=== PATIENT | female | born 1990 | race Caucasian/White ===

== ENCOUNTER 2016-08-25 21:57 | Emergency (ER) | payer OTHER ==
[~2016-08-25] VITALS: Ht 162.6 cm; Wt 81.8 kg
[~2016-08-25 21:57] MED LIST: CIPR-198 PO; CIPR-231 PO; ETON68IM3 SQ; GABA600T2 PO; HYDR-3090 PO; HYDR-4003 PO; IBUP-1827 PO; ONDA4TAB9 PO; OXYC1TAB24 PO; TAMS0.4C98 PO; VENL37.53 PO
[2016-08-25 22:31] VITALS: BP 114/83; PULSE 94; RESP 18; O2SAT 98
--- NOTE | 2016-08-25 22:46 | ED.REPORT ---
HPI-Chest Pain Under 40 Date of Service Aug 25, 2016 ED Provider: Terrance Ngo MD Patient is a 26 year old female with a history of kidney stones who presents to the ED with chest pain that began this afternoon. Patient reports a tightness when sitting still, with a sharp pain when she breaths out. Patient reports that the pain radiates into her left arm, with associated weakness and fatigue. She also reports nausea and vomiting, vomiting on arrival to the ED. The patient is on the Implanon for control and her LNMP was 2 years ago. Patient denies a cough, fever, or chills. Patient has previously had a cholecystectomy and a J-stent placed due to kidney stones, but denies any other surgeries. Patient denies knowledge of a familial hypercoagulable state and heart disease in her close relatives. Nursing Notes Stated Complaint: CHEST PAIN Chief Complaint: Chest Pain-Non Cardiac Nature Nursing Notes Reviewed: Yes Allergies: Coded Allergies: Penicillins (Verified Allergy, Unknown, hives, 07/01/16) amoxicillin (Verified Allergy, Unknown, rash, 07/01/16) Scheduled Ciprofloxacin (Cipro) 500 Mg Tablet 500 MG PO BID Ciprofloxacin (Ciprofloxacin) 500 Mg Tablet 500 MG PO BID Etonogestrel (Nexplanon) 68 Mg Implant 68 MG SQ DAILY Gabapentin (Gabapentin) 600 Mg Tablet 600 MG PO TID Tamsulosin (Flomax) 0.4 Mg Capsule 0.4 MG PO DAILY Venlafaxine ER (Effexor XR) 37.5 Mg Capsule 37.5 MG PO DAILY Scheduled PRN Hydrocodone-Acetaminophen 5-300 mg (Hydrocodone-Acetaminophen 5-300 mg) 1 Each Tablet 1 TABLET PO Q4H PRN PRN For Pain Hydrocodone-Acetaminophen 5-325 mg (Hydrocodone-Acetaminophen 5-325 mg) 1 Each Tablet 1-2 TABLET PO Q4H PRN PRN For Pain Hydrocodone-Acetaminophen 5-325 mg (Hydrocodone-Acetaminophen 5-325 mg) 1 Each Tablet 1 TABLET PO Q4H PRN PRN For Pain Ibuprofen (Ibuprofen) 600 Mg Tablet 600 MG PO QID PRN PRN For Pain Ondansetron ODT (Zofran ODT) 4 Mg Tablet 4 MG PO Q4H PRN PRN For Nausea oxyCODONE-Acetaminophen 5-325 mg (oxyCODONE-Acetaminophen 5-325 mg) 1 Each Tablet 1-2 TAB PO Q6H PRN PRN For Pain General Time Seen by MD: 22:44 Chief Complaint Chest pain Hx Obtained From: Patient Arrived By: Walk-in Sudden in Onset?: No Location: : Chest left Quality: Painful, Stabbing Radiation: : Arm left Severity: Current: Moderate Severity: Maximum: Moderate Recent Healthcare: No recent doctor visit, No recent hospitalization Similar Sx Previous: No Past Medical History Past Medical History Notes: Urologist: Dr. 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 Alcohol Use: Denies alcohol use Drug Use: Denies drug use Other Social History: Good social support, Local resident Ambulatory Status Independent Review of Systems Constitutional: Denies: Chills, Fever Respiratory: Denies: Non-productive cough, Shortness of breath Cardiovascular: Reports: Chest pain GI: Reports: Nausea, Vomiting, Denies: Abdominal pain Complete sys rev & neg: except as marked. Physical Exam Initial Vital Signs Vital Signs (First) Date Time Temp Pulse Resp B/P Pulse Ox O2 Delivery O2 Flow Rate FiO2 08/25/16 22:31 36.1 94 18 114/83 98 Room Air Initial VS: Reviewed Head / Eyes: Atraumatic, Normocephalic, PERRL ENT: Conjunctiva normal, No scleral icterus Neck: Supple, Full range of motion Abdomen / GI: Soft, Non-tender, No guarding, No rebound Extremities: Vascular intact, Neuro intact Skin: Warm, Dry, No cyanosis Neurologic: Alert, Oriented, Nonfocal Psychiatric: Mood/affect normal, Behavior normal, Normal thought content General/Constitutional: Awake, Alert, No acute distress Respiratory / Chest: Breath sounds NL, Breath sounds = bilat, No respiratory distress, No rales, No rhonchi, No wheezing Cardiovascular: Heart rate NL, Regular rhythm, Heart sounds NL, No gallop, No murmurs, No rubs Interpretation & Diagnostics Lab Results Interpretation Result Diagram: 08/25/16 2300 08/25/16 2300 Test 08/25/16 23:00 White Blood Count 9.2th/mm3 (3.8-10.1) Red Blood Count 4.64mil/mm3 (3.90-5.20) Hemoglobin 14.3g/dL (12.0-15.6) Hematocrit 41.1% (35.0-46.0) Mean Corpuscular Volume 88.6fL (81-100) Mean Corpuscular Hemoglobin 30.8pg (27.0-35.0) Mean Corpuscular Hemoglobin Concent 34.8% (32.0-37.0) Red Cell Distribution Width 12.3% (12.3-15.4) Platelet Count 312bil/L (150-400) Neutrophils (%) (Auto) 49.5% (40-74) Lymphocytes (%) (Auto) 38.6% (14-46) Monocytes (%) (Auto) 8.4% (4-12) Eosinophils (%) (Auto) 2.6% (0-5) Basophils (%) (Auto) 0.7% (0-3) D-Dimer < 0.5mg/L (<0.50) Sodium Level 141mEq/L (134-144) Potassium Level 4.3mEq/L (3.5-5.2) Chloride Level 102mEq/L (97-108) Carbon Dioxide Level 25mmol/L (18-29) Blood Urea Nitrogen 6mg/dL (6-20) Creatinine 0.63mg/dL (0.57-1.00) Estimat Glomerular Filtration Rate 161mL/min (>59) Glucose Level 121mg/dL (60-99) Calcium Level 9.4mg/dL (8.5-10.1) Total Bilirubin 0.2mg/dL (0.0-1.2) Aspartate Amino Transf (AST/SGOT) 39U/L (0-50) Alanine Aminotransferase (ALT/SGPT) 39U/L (0-32) Alkaline Phosphatase 125U/L (25-150) Troponin T 0.010ug/L (0.0-0.011) Total Protein 7.8g/dL (6.4-8.4) Albumin 4.4g/dL (3.4-5.0) ECG Interpretation ECG Interpretation: Normal Sinus Rhythm, Rate 79 Time: 23:30 Interpreted by: ED physician Normal ECG Interpretation: No acute ischemic changes X-Ray Chest Interpretation Chest Xray Interpretation: Impression: No acute disease. View: AP & lat Interpretation / Wet Read by: Wet read ED physician Re-Eval/Medical Decision Source of Hx: Old records Re-Evaluation/Progress #1: Time of Eval: 00:00 Re-Evaluation/Progress Note: Rechecked the patient. Her nausea is now improved. Patient reports ongoing chest pain and requests her bed to moved up so that she can sit. Will recheck after additional labs. Re-Evaluation/Progress #2: Time of Eval: 00:25 Re-Evaluation/Progress Note: Work up was negative. Patient understands and agrees with the plan to be discharged home. Discharge instructions and follow-up discussed. All questions were addressed. Return to the ED warnings given. Counseled Regarding: Diagnosis, Lab results, Need for follow-up, When/why to return to ED Discharge & Departure Primary Impression: Non-cardiac chest pain Disposition: Home Discharge Condition All VS Reviewed: Yes Condition: Stable Patient Instructions: Costochondritis (ED) Additional Instructions: ED evaluation included interview exam labs ECG and chest x-ray. No serious cause for chest pain is found. Use ibuprofen 600mg 3 times a day, take with food. Do this for 2-3 days to decrease inflammation, then may use 3-4 times a day as needed. Ondansetrn as needed for nausea. return to ED for fevers, uncontrolled vomiting, shortness of breath. follow up with primary care next week. Referrals: OTHER,PHYSICIAN (PCP) (Family) Scribe Attestation Portions of this note were transcribed by Gayla Moreland. I, Dr. Ngo personally performed the history, physical exam and medical decision-making; I reviewed and confirmed the accuracy of the information in the transcribed note. Signed by: Jaylen Matt, 08/26/2016 0016 copies to: MISHA,PHYSICIAN Terrance Ngo MD Aug 25, 2016 22:46 Gayla Moreland Aug 25, 2016 22:54
[2016-08-25] MEDS ORDERED: 0.9% Sodium Chloride 1,000 ML IV ONE (22:55)
[2016-08-25] MEDS ORDERED: Ondansetron 2 mg/mL 2 mL Inj IVPUSH ONE (22:55)
[2016-08-25 23:36] LABS: Mean Corpuscular Hemoglobin 30.8 pg (27.0-35.0); Mean Corpuscular Volume 88.6 fL (81-100)
[2016-08-25 23:37] LABS: BASOPHILS % (AUTO) 0.7 % (0-3); EOSINOPHILS % (AUTO) 2.6 % (0-5); MONOCYTES % (AUTO) 8.4 % (4-12); NEUTROPHILS % (AUTO) 49.5 % (40-74); Platelet Count 312 bil/L (150-400)
[2016-08-26 00:03] LABS: TROPONIN T 0.01 ug/L (0.0-0.011)
[2016-08-26] MEDS ORDERED: HYDROcodone-APAP 5-325 mg Tablet PO ONE (00:05)
[2016-08-26] MEDS ORDERED: _Ondansetron ODT 4 mg Tablet PO PRN (00:15)
[2016-08-26 00:57] VITALS: BP 109/71; PULSE 70; PULSE 71; RESP 16; RESP 18; O2SAT 97
--- NOTE | 2016-08-26 08:56 | DRSVH ---
PROCEDURE: X-RAY CHEST, TWO VIEWS ([id number]) INDICATIONS: chest pain TECHNIQUE: 2 views of the chest were acquired. COMPARISON: None. FINDINGS: Surgical changes and devices: None. Lungs and pleura: No pleural effusions or pneumothorax. Lungs are clear. Mediastinum: Mediastinal contours are normal. Heart size is normal. Bones and chest wall: No suspicious bony abnormalities. Soft tissues appear unremarkable. IMPRESSION: Normal for age. Source of pain not seen. Dictated by: Ishaan Martines M.D. on 08/26/2016 at 8:54 Approved by: Ishaan Martines M.D. on 08/26/2016 at 8:54
== END 2016-08-26 00:58 | disposition home or self-care (01) ==
LOC: SED 21:57
DX: R07.89 Other chest pain (principal); Z90.49 Acquired absence of other specified parts of digestive tract; F17.200 Nicotine dependence, unspecified, uncomplicated
CPT/HCPCS: 36415; 71020; 80053; 84484; 85025; 85379; 93005; 96361; 96374; 96375; 99285; J2405; J7030

== ENCOUNTER 2016-09-10 17:58 | Emergency (ER) | payer OTHER ==
[~2016-09-10] VITALS: Ht 162.6 cm; Wt 81.8 kg
[2016-09-10 18:03] VITALS: BP 124/93; PULSE 100; RESP 20; O2SAT 98
--- NOTE | 2016-09-10 18:12 | ED.REPORT ---
HPI-Abd Pain F Under 40 Date of Service Sep 10, 2016 ED Provider: Romie Chen DO A 26 year old female with a history of pyelonephritis, right-sided ureteropelvic junction obstruction, and stent removal presents to the ED complaining of right sided abdominal pain radiating to her back. This is accompanied by diarrhea, fever, nausea, dysuria, and chills. The pt has been experiencing frequent watery diarrhea for 1.5 days, and the chills began several hours ago. The pain is similar to pain that has been occurring intermittently since before her operation. The pt has never before experienced diarrhea with her pain. She is not on her menstrual period at this time. Nursing Notes Stated Complaint: ABDOMINAL PAIN, CHILLS Chief Complaint: Female Abdominal Pain Nursing Notes Reviewed: Yes Allergies: Coded Allergies: Penicillins (Verified Allergy, Unknown, hives, 07/01/16) amoxicillin (Verified Allergy, Unknown, rash, 07/01/16) Scheduled Ciprofloxacin (Cipro) 500 Mg Tablet 500 MG PO BID Ciprofloxacin (Ciprofloxacin) 500 Mg Tablet 500 MG PO BID Etonogestrel (Nexplanon) 68 Mg Implant 68 MG SQ DAILY Gabapentin (Gabapentin) 600 Mg Tablet 600 MG PO TID Tamsulosin (Flomax) 0.4 Mg Capsule 0.4 MG PO DAILY Venlafaxine ER (Effexor XR) 37.5 Mg Capsule 37.5 MG PO DAILY Scheduled PRN Hydrocodone-Acetaminophen 5-300 mg (Hydrocodone-Acetaminophen 5-300 mg) 1 Each Tablet 1 TABLET PO Q4H PRN PRN For Pain Hydrocodone-Acetaminophen 5-325 mg (Hydrocodone-Acetaminophen 5-325 mg) 1 Each Tablet 1-2 TABLET PO Q4H PRN PRN For Pain Hydrocodone-Acetaminophen 5-325 mg (Hydrocodone-Acetaminophen 5-325 mg) 1 Each Tablet 1 TABLET PO Q4H PRN PRN For Pain Ibuprofen (Ibuprofen) 600 Mg Tablet 600 MG PO QID PRN PRN For Pain Ondansetron ODT (Zofran ODT) 4 Mg Tablet 4 MG PO Q4H PRN PRN For Nausea oxyCODONE-Acetaminophen 5-325 mg (oxyCODONE-Acetaminophen 5-325 mg) 1 Each Tablet 1-2 TAB PO Q6H PRN PRN For Pain General Time Seen by MD: 18:11 Chief Complaint Abdominal pain Hx Obtained From: Patient Arrived By: Walk-in Sudden in Onset?: No Onset Occurred: More than a week ago... Symptom Duration: Intermittent Recent Healthcare: Recent doctor visit, Recent hospitalization Similar Sx Previous: Yes Past Medical History Past Medical History Notes: Urologist: Dr. 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 Alcohol Use: Denies alcohol use Drug Use: Denies drug use Other Social History: Good social support, Local resident Ambulatory Status Independent Review of Systems Constitutional: Reports: Chills, Fever Respiratory: Denies: Non-productive cough, Shortness of breath Cardiovascular: Denies: Chest pain GI: Reports: Abdominal pain, Diarrhea, Nausea Female: Reports: Dysuria Musculoskeletal: Reports: Back pain Complete sys rev & neg: except as marked. Physical Exam Initial Vital Signs Vital Signs (First) Date Time Temp Pulse Resp B/P Pulse Ox O2 Delivery O2 Flow Rate FiO2 09/10/16 18:03 36.3 100 20 124/93 98 09/10/16 21:02 Room Air Initial VS: Reviewed General/Constitutional: Awake, Alert Respiratory / Chest: Atraumatic, Breath sounds NL, Breath sounds = bilat, No respiratory distress Cardiovascular: Heart rate NL, Regular rhythm, Heart sounds NL Abdomen: Atraumatic, Soft abdomen diffusely tender without rebound or guarding Back: Atraumatic, Full range of motion right CVAT right paraspinal tenderness Head / Eyes: Atraumatic, Normocephalic, PERRL, EOMI ENT: Atraumatic, Airway patent, Mucous membranes moist Skin: Atraumatic, Color NL, No rash, Warm, Dry Neurologic: Oriented X3, Speech NL, No motor deficits, No sensory deficits Neck: Atraumatic, Supple, Full range of motion Upper Extremity / MS: Atraumatic, Full range of motion Lower Extremity / Pelvis / MS: Atraumatic, Full range of motion Psychiatric: Affect NL, Mood NL Interpretation & Diagnostics Interpretation & Diagnostics: CT KUB: IMPRESSION: 1. No evidence of urinary tract calcification, nor obstruction. 2. Normal appendix. 3. Right sacroiliitis. Dictated by: Sharon Chung M.D. on 09/10/2016 at 21:37 Approved by: Sharon Chung M.D. on 09/10/2016 at 21:40 Lab Results Interpretation Result Diagram: 09/10/16 1904 09/10/16 1904 Test 09/10/16 18:44 09/10/16 19:04 Urine Color Bloody (YELLOW) Urine Appearance Hazy (CLEAR,HAZY) Urine pH 6.0 (5.0-8.0) Urine Specific [place] <1.005 (1.003-1.035) Urine Protein Negativemg/dL (NEG,TRACE) Urine Glucose (UA) Negativemg/dL (NEGATIVE) Urine Ketones Negativemg/dL (NEGATIVE) Urine Occult Blood Large (NEGATIVE) Urine Nitrite Negative (NEGATIVE) Urine Bilirubin Negative (NEGATIVE) Urine Urobilinogen Normalmg/dL (NORMAL) Urine Leukocyte Esterase Negative (NEGATIVE) Urine RBC >50/hpf (0-2) Urine WBC 0-5/hpf (0-5) Urine Epithelial Cells Many/hpf (NONE-MOD) Urine Crystals None seen (NONE SEEN) Urine Bacteria Many/hpf (NONE-FEW) Urine Hyaline Casts None/lpf (NONE) Urine Granular Casts None seen (NONE SEEN) Urine Waxy Casts None seen (NONE SEEN) Urine Red Blood Cell Casts None seen (NONE SEEN) Urine White Blood Cell Casts None seen (NONE SEEN) Urine Mucus None seen (None Seen) Urine Trichomonas None seen (NONE SEEN) Urine Yeast None (NONE SEEN) Urinalysis Comment None Urine Culture Reflexed Indicated White Blood Count 7.2th/mm3 (3.8-10.1) Red Blood Count 4.31mil/mm3 (3.90-5.20) Hemoglobin 13.0g/dL (12.0-15.6) Hematocrit 38.4% (35.0-46.0) Mean Corpuscular Volume 89.1fL (81-100) Mean Corpuscular Hemoglobin 30.2pg (27.0-35.0) Mean Corpuscular Hemoglobin Concent 33.9% (32.0-37.0) Red Cell Distribution Width 12.2% (12.3-15.4) Platelet Count 324bil/L (150-400) Neutrophils (%) (Auto) 64.3% (40-74) Lymphocytes (%) (Auto) 27.6% (14-46) Monocytes (%) (Auto) 6.0% (4-12) Eosinophils (%) (Auto) 1.4% (0-5) Basophils (%) (Auto) 0.6% (0-3) Sodium Level 141mEq/L (134-144) Potassium Level 3.7mEq/L (3.5-5.2) Chloride Level 104mEq/L (97-108) Carbon Dioxide Level 24mmol/L (18-29) Blood Urea Nitrogen 10mg/dL (6-20) Creatinine 0.56mg/dL (0.57-1.00) Estimat Glomerular Filtration Rate 185mL/min (>59) Glucose Level 81mg/dL (60-99) Lactic Acid Level 1.0mmol/L (0.4-2.0) Calcium Level 9.3mg/dL (8.5-10.1) Magnesium Level 2.1mg/dL (1.6-2.6) Total Bilirubin 0.3mg/dL (0.0-1.2) Aspartate Amino Transf (AST/SGOT) 38U/L (0-50) Alanine Aminotransferase (ALT/SGPT) 55U/L (0-32) Alkaline Phosphatase 176U/L (25-150) Total Protein 7.5g/dL (6.4-8.4) Albumin 4.4g/dL (3.4-5.0) Lipase 40U/L (13-60) X-Ray Abdominal Interpretation IMPRESSION: No acute process. No bowel obstruction. Dictated by: Sharon Chung M.D. on 09/10/2016 at 19:00 Approved by: Sharon Chung M.D. on 09/10/2016 at 19:01 Interpretation / Wet Read by: Interpret - Radiologist Re-Eval/Medical Decision Med Decision/Clinical Course 26-year-old female with a history of anxiety and low back pain presents with nausea, vomiting, and diarrhea for the past day. She has had 11 episodes of watery bowel movements. His fevers or chills. Denies hematemesis/melena. She is not on her period, this finished 2 days ago. She was found to have significant hematuria and given her right-sided CVA tenderness/flank pain abdominal CT was performed which returned normal except for his right-sided sacroiliitis. History of some renal complications on the right side that have required a stent which was recently removed back in June. I do not see any evidence of complications today but we can have her follow-up with urology as an outpatient at her request. Her renal function is normal. I have nothing to explain hematuria, but her exam and labs are reassuring. She will take ibuprofen for her sacroiliitis and I gave her a small supply of pain medications for breakthrough pain. Source of Hx: Old records Re-Evaluation/Progress #1: Time of Eval: 20:46 Re-Evaluation/Progress Note: Pt rechecked, who is still in pain. She is informed of her lab results and need for CT scan. Re-Evaluation/Progress #2: Time of Eval: 22:08 Patient Status: Condition improved Re-Evaluation/Progress Note: Pt rechecked, who is resting comfortably. She is informed of her lab and radiology results, as well as her diagnosis and the plan for discharge. The pt understands and agrees with the plan. All questions are addressed at this time. Counseled Regarding: Diagnosis, Lab results, Need for follow-up, When/why to return to ED Discharge & Departure Primary Impression: Gastroenteritis Additional Impressions: Sacroiliitis Hematuria Disposition: Home Discharge Condition All VS Reviewed: Yes Condition: Stable Additional Instructions: Thank you for entrusting us with your care today. Follow up with Dr. Dietz, urology, this week for further evaluation. Call on Tuesday to arrange this appointment. You should also follow up with your primary care provider. Return to the emergency department if you develop any new or concerning symptoms. Referrals: OTHER,PHYSICIAN (PCP) Abran Dietz MD Attestation Portions of this note were transcribed by Chantel Ramirez I, Dr. Chen personally performed the history, physical exam and medical decision-making; I reviewed and confirmed the accuracy of the information in the transcribed note. Signed by: Jaylen Bailey, 09/10/16 and 18:29. copies to: Abran Dietz MD, Gary R DO Sep 10, 2016 18:12 CHANTEL RAMIREZ Sep 10, 2016 18:29
[2016-09-10] MEDS ORDERED: 0.9% Sodium Chloride 1,000 ML IV ONE (18:28)
[2016-09-10] MEDS ORDERED: Ondansetron 2 mg/mL 2 mL Inj IVPUSH PRN (18:30)
[2016-09-10 18:56] LABS: APPEARANCE,URINE HAZY (CLEAR,HAZY); COLOR,URINE BLOODY (YELLOW); OCCULT BLOOD,URINE LARGE (NEGATIVE); UROBILINOGEN,URINE NORMAL (NORMAL)
--- NOTE | 2016-09-10 19:03 | DRSVH ---
PROCEDURE: X-RAY ACUTE ABDOMINAL SERIES ([id number]) INDICATIONS: diffuse abdominal pain, diarrhea TECHNIQUE: One view chest and two views of the abdomen were acquired. COMPARISON: [facility], CR, XR ABD ACUTE SERIES 3VW, 04/29/2016, 14:43. [facility], CR, XR CHEST 2VW, 08/25/2016, 23:35. FINDINGS: Surgical changes and devices: None. Chest: Lungs are clear. Heart size is normal. No pleural effusions. No pneumoperitoneum. Abdomen: Bowel gas pattern is normal. No suspicious calcifications. Visualized solid organ contour s appear normal. Bones: No suspicious bony lesions. IMPRESSION: No acute process. No bowel obstruction. Dictated by: Sharon Chung M.D. on 09/10/2016 at 19:00 Approved by: Sharon Chung M.D. on 09/10/2016 at 19:01
[2016-09-10 19:20] LABS: BASOPHILS % (AUTO) 0.6 % (0-3); EOSINOPHILS % (AUTO) 1.4 % (0-5); Mean Corpuscular Hemoglobin 30.2 pg (27.0-35.0); Mean Corpuscular Volume 89.1 fL (81-100); NEUTROPHILS % (AUTO) 64.3 % (40-74); Platelet Count 324 bil/L (150-400)
[2016-09-10 19:43] LABS: Magnesium 2.1 mg/dL (1.6-2.6)
[2016-09-10] MEDS ORDERED: HYDROmorphone 1 mg/mL Inj IVPUSH ONE (20:45)
[2016-09-10 21:02] VITALS: BP 127/62; PULSE 84; RESP 16; O2SAT 97
--- NOTE | 2016-09-10 21:42 | DRSVH ---
PROCEDURE: CT KUB ([id number]) INDICATIONS: R flank pain, hematuria TECHNIQUE: Noncontrast 5 mm thick sections acquired from the diaphragms to the symphysis. 5 mm thick coronal an d sagittal reformats were then performed. For radiation dose reduction, the following was used: aut omated exposure control, adjustment of mA and/or kV according to patient size. COMPARISON: [facility], CT, CT ABD PELVIS W CON, 05/14/2016, 1:46. [facility] l, CT, CT KUB, 06/06/2016, 11:02. FINDINGS: Image quality: Excellent. Lung bases: Lung bases are clear. Heart size is normal. Urinary system: Both kidneys are normal in size. No kidney stones. No hydronephrosis or perinephri c fat stranding. Both ureters appear non-dilated throughout their expected courses. Bladder wall th ickness is normal; no calcified bladder stones. Other solid organs: Liver and spleen are normal in size. Gallbladder is surgically absent. Pancrea s is normal in contours. No adrenal nodules. Peritoneum and bowel: Unenhanced bowel loops demonstrate normal wall thickness and caliber. No free fluid or air. Normal appendix. Nodes and vessels: No retroperitoneal or mesenteric adenopathy by size criteria. Aorta and inferior vena cava are normal in caliber. Abdominal wall: No ventral hernias. Pelvis: No free pelvic fluid. No inguinal hernias or adenopathy. Bones: No suspicious bony lesions. Sclerosis within the right lateral sacrum adjacent to the sacroi liac joint is present. No vertebral body compression fractures. IMPRESSION: 1. No evidence of urinary tract calcification, nor obstruction. 2. Normal appendix. 3. Right sacroiliitis. Dictated by: Sharon Chung M.D. on 09/10/2016 at 21:37 Approved by: Sharon Chung M.D. on 09/10/2016 at 21:40
[2016-09-10] MEDS ORDERED: oxyCODONE-Acetamin 5-325 mg Tablet PO ONE (22:15)
[2016-09-10] MEDS ORDERED: _oxyCODONE/APAP 5-325 mg Tablet PO PRN (22:25)
== END 2016-09-10 23:03 | disposition home or self-care (01) ==
LOC: SED 17:58
DX: K52.9 Noninfective gastroenteritis and colitis, unspecified (principal); M46.1 Sacroiliitis, not elsewhere classified; R31.9 Hematuria, unspecified; F41.9 Anxiety disorder, unspecified; F17.200 Nicotine dependence, unspecified, uncomplicated; Z87.448 Personal history of other diseases of urinary system; Z96.0 Presence of urogenital implants; Z88.0 Allergy status to penicillin
CPT/HCPCS: 36415; 74022; 74176; 80053; 81000; 81025; 83605; 83690; 83735; 85025; 87086; 87088; 96361; 96374; 96375; 99285; J1170; J2405; J7030

== ENCOUNTER 2016-09-20 22:24 | Emergency (ER) | payer OTHER ==
[~2016-09-20] VITALS: Ht 162.6 cm; Wt 79.5 kg
[2016-09-20 22:38] VITALS: BP 131/85; PULSE 32; RESP 18; O2SAT 98
--- NOTE | 2016-09-21 00:15 | ED.REPORT ---
HPI-General Illness Peds Date of Service Sep 21, 2016 ED Provider: Gennaro Blood MD Nursing Notes Stated Complaint: LEFT WRIST LACERATION Chief Complaint: Laceration Nursing Notes Reviewed: Yes Allergies: Coded Allergies: Penicillins (Verified Allergy, Unknown, hives, 09/20/16) amoxicillin (Verified Allergy, Unknown, rash, 09/20/16) Scheduled Ciprofloxacin (Cipro) 500 Mg Tablet 500 MG PO BID Ciprofloxacin (Ciprofloxacin) 500 Mg Tablet 500 MG PO BID Etonogestrel (Nexplanon) 68 Mg Implant 68 MG SQ DAILY Gabapentin (Gabapentin) 600 Mg Tablet 600 MG PO TID Tamsulosin (Flomax) 0.4 Mg Capsule 0.4 MG PO DAILY Venlafaxine ER (Effexor XR) 37.5 Mg Capsule 37.5 MG PO DAILY Scheduled PRN Hydrocodone-Acetaminophen 5-300 mg (Hydrocodone-Acetaminophen 5-300 mg) 1 Each Tablet 1 TABLET PO Q4H PRN PRN For Pain Hydrocodone-Acetaminophen 5-325 mg (Hydrocodone-Acetaminophen 5-325 mg) 1 Each Tablet 1-2 TABLET PO Q4H PRN PRN For Pain Hydrocodone-Acetaminophen 5-325 mg (Hydrocodone-Acetaminophen 5-325 mg) 1 Each Tablet 1 TABLET PO Q4H PRN PRN For Pain Ibuprofen (Ibuprofen) 600 Mg Tablet 600 MG PO QID PRN PRN For Pain Ondansetron ODT (Zofran ODT) 4 Mg Tablet 4 MG PO Q4H PRN PRN For Nausea oxyCODONE-Acetaminophen 5-325 mg (oxyCODONE-Acetaminophen 5-325 mg) 1 Each Tablet 1-2 TAB PO Q6H PRN PRN For Pain General Time Seen by MD: 00:05 Past Medical History Past Medical History Notes: Urologist: Dr. Okeefe Smoking History Current Every Day Smoker, Light Tobacco Smoker Physical Exam Initial Vital Signs Vital Signs (First) Date Time Temp Pulse Resp B/P Pulse Ox O2 Delivery O2 Flow Rate FiO2 09/20/16 22:38 37.0 32 18 131/85 98 Discharge & Departure Referrals: NOPCP (PCP) Gennaro Blood MD Sep 21, 2016 00:15 Gayla Moreland Sep 21, 2016 00:20
[2016-09-21] MEDS ORDERED: Lidocaine-Epi-Tetracaine Solution 3 mL Syringe TOPICAL ONE (00:20)
--- NOTE | 2016-09-21 00:21 | ED.REPORT ---
HPI-Extremity Problem Upper Date of Service Sep 21, 2016 ED Provider: Gennaro Blood MD Patient is a 26 year old female with a history of depression with self-harm who presents to the ED with several lacerations to her left arm that she inflicted this evening. The patient states that she simply cut herself too deep and realized that she needed stitches. She used a razor blade to cut herself. The patient admits that she frequently cutting herself, as a form of pain relief. The patient also cut herself yesterday, but states that prior to that incident it had been 6 months. Patient states that she has chronic flank and abdominal pain and that cutting herself is a way of dealing with her intractable pain. Patient denies being suicidal. Patient denies any other lacerations to her mother other extremities. The patient denies doing anything else to harm herself. Patient is unsure when her last tetanus shot was, but probably during high school. Nursing Notes Stated Complaint: LEFT WRIST LACERATION Chief Complaint: Laceration Nursing Notes Reviewed: Yes Allergies: Coded Allergies: Penicillins (Verified Allergy, Unknown, hives, 09/20/16) amoxicillin (Verified Allergy, Unknown, rash, 09/20/16) Scheduled Ciprofloxacin (Cipro) 500 Mg Tablet 500 MG PO BID Ciprofloxacin (Ciprofloxacin) 500 Mg Tablet 500 MG PO BID Etonogestrel (Nexplanon) 68 Mg Implant 68 MG SQ DAILY Gabapentin (Gabapentin) 600 Mg Tablet 600 MG PO TID Tamsulosin (Flomax) 0.4 Mg Capsule 0.4 MG PO DAILY Venlafaxine ER (Effexor XR) 37.5 Mg Capsule 37.5 MG PO DAILY Scheduled PRN Hydrocodone-Acetaminophen 5-300 mg (Hydrocodone-Acetaminophen 5-300 mg) 1 Each Tablet 1 TABLET PO Q4H PRN PRN For Pain Hydrocodone-Acetaminophen 5-325 mg (Hydrocodone-Acetaminophen 5-325 mg) 1 Each Tablet 1-2 TABLET PO Q4H PRN PRN For Pain Hydrocodone-Acetaminophen 5-325 mg (Hydrocodone-Acetaminophen 5-325 mg) 1 Each Tablet 1 TABLET PO Q4H PRN PRN For Pain Ibuprofen (Ibuprofen) 600 Mg Tablet 600 MG PO QID PRN PRN For Pain Ondansetron ODT (Zofran ODT) 4 Mg Tablet 4 MG PO Q4H PRN PRN For Nausea oxyCODONE-Acetaminophen 5-325 mg (oxyCODONE-Acetaminophen 5-325 mg) 1 Each Tablet 1-2 TAB PO Q6H PRN PRN For Pain General Time Seen by MD: 00:05 Chief Complaint Arm injury left Hx Obtained From: Patient Arrived By: Walk-in Onset Occurred: 1 - 4 hours ago Symptom Duration: Since onset Location: : Arm left Quality: Painful Severity: Current: Mild Severity: Maximum: Mild Recent Healthcare: No recent doctor visit, No recent hospitalization Similar Sx Previous: Yes Past Medical History Past Medical History Notes: Urologist: Dr. Okeefe Past Medical History Pyelonephritis Kidney stones Suspected right-sided ureteropelvic junction obstruction s/p stenting on 05/12/2016 chronic flank pain related to kidney stones and prior stenting Chlamydia depression with self-cutting history of IVDA Past Surgical History right sided double-J stent placement removed 06/2016 Reports: Cholecystectomy Family History Grandmother: heart disease and prior [place] Mother: Colon cancer no family history of blood clots Smoking History Current Every Day Smoker, Light Tobacco Smoker Social History former IVDA, not currently using. Alcohol Use: Denies alcohol use Drug Use: Denies drug use Other Social History: Good social support, Local resident Ambulatory Status Independent Review of Systems Musculoskeletal: Reports: Extremity pain, Denies: Extremity swelling Complete sys rev & neg: except as marked. Hematologic: Reports Bleeding Psychiatric: Reports: Depression, Denies: Suicidal ideation Physical Exam Initial Vital Signs Vital Signs (First) Date Time Temp Pulse Resp B/P Pulse Ox O2 Delivery O2 Flow Rate FiO2 09/20/16 22:38 37.0 32 18 131/85 98 09/21/16 02:07 Room Air Initial VS: Reviewed, Vital signs normal Head / Eyes: Atraumatic, Normocephalic, PERRL ENT: Conjunctiva normal, No scleral icterus Neck: Supple, Full range of motion Lower Extremities: Vascular intact, Neuro intact Skin: Warm, Dry, No cyanosis Neurologic: Alert, Oriented, Nonfocal General/Constitutional: Awake, Alert, No acute distress Respiratory / Chest: Breath sounds NL, Breath sounds = bilat, No respiratory distress, No rales, No rhonchi, No wheezing, No stridor Cardiovascular: Heart rate NL, Regular rhythm, Heart sounds NL, Cap refill not delayed, Peripheral circulation NL Upper Extremity / MS: Neurologic intact, Vascular intact Trauma / Burn / Environmental: Positive: Laceration (4.5cm laceration to the left forearm, longitudinal, full thickness into the subcutaneous tissue, but not involving vital structures.) Multiple transverse superficial lacerations to the volar left wrist. Psychiatric: Affect NL, Mood NL, Not suicidal Abnormal Mood/Affect: Negative: Depressed, Flat affect animated and conversant Procedures Laceration Management Time: :28 Procedure Performed by: ED physician Consent / Setup / Site Prep: Consent from patient, Time-out performed, Hand hygiene observed, Stand sterile technique Location of Wound: left forearm Wound Length: 4 cm (4.5cm) Local Anesthesia: Lidocaine w epi 1% Wound Preparation: Shurclens, Normal saline Debridement: None Foreign Body Explore / Removal: Explored for foreign body Repair Skin: Nylon (5-0) # Sutures - Skin: 8 Closure Layers: 1 Suture Technique: Simple Post-Procedure / Complications: Antibiotic oint applied, Dressing applied, No complications, Condition improved, Tolerated procedure well, Patient stable Re-Eval/Medical Decision Med Decision/Clinical Course 26-year-old female who cut her left forearm intent upon "relieving the pain." She cuts frequently. One cut was much deeper than she intended and required sutures. Her wound was closed without difficulty. She has a history of chronic pain with intermittent opiate treatment in the past. She is not currently on opiates. We discussed the use of Suboxone in her case and she will make an appointment with [facility] to explore use of that medicine chronically. She does not feel at risk at this time of further self injury. Source of Hx: Old records Re-Evaluation/Progress : Time of Eval: : Patient Status: Condition improved Re-Evaluation/Progress Note: Rechecked the patient. Laceration repaired. She is not currently on any chronic pain medications, but states that she was last on narcotics 1 month ago (5mg Vicodin). She states that it didn't completely resolve her pain. She was previously on Suboxone for opiate withdrawal, but states that it made her nauseated. Patient understands and agrees with the plan to be discharged home. Discharge instructions and follow-up discussed. All questions were addressed. Return to the ED warnings given. Counseled Regarding: Diagnosis, Need for follow-up, When/why to return to ED Discharge & Departure Impression: Primary Impression: Laceration of left forearm Encounter type: initial encounter Qualified Code: S51.812A - Laceration without foreign body of left forearm, initial encounter Additional Impression: Deliberate self-cutting Disposition: Home Discharge Condition Condition: Stable Patient Instructions: Laceration (ED), Suture Care (ED) Additional Instructions: Sutures out in 7-10 days. You may return here for that. Agree to stay safe, and not cut. Contact [facility] to schedule an appointment to see me to discuss the use of buprenorphine for your chronic pain issues. Referrals: [facility] Scribe Attestation Portions of this note were transcribed by Gayla Moreland. I, Dr. Blood personally performed the history, physical exam and medical decision-making; I reviewed and confirmed the accuracy of the information in the transcribed note. Signed by: Jaylen Matt, 09/21/2016 0202 Gennaro Blood MD Sep 21, 2016 00:21 Gayla Moreland Sep 21, 2016 00:23
[2016-09-21 02:07] VITALS: BP 128/70; PULSE 72; RESP 16; O2SAT 99
== END 2016-09-21 02:08 | disposition home or self-care (01) ==
LOC: SED 22:24
DX: S51.812A Laceration without foreign body of left forearm, initial encounter (principal); X78.8XXA Intentional self-harm by other sharp object, initial encounter; Y93.89 Activity, other specified; Y92.9 Unspecified place or not applicable; Y99.8 Other external cause status; F17.200 Nicotine dependence, unspecified, uncomplicated; Z88.0 Allergy status to penicillin; Z91.5 Personal history of self-harm; Z88.1 Allergy status to other antibiotic agents

== ENCOUNTER 2016-09-22 23:14 | Emergency (ER) | payer OTHER ==
[~2016-09-22] VITALS: Ht 162.6 cm; Wt 79.5 kg
[2016-09-22 23:23] VITALS: BP 105/67; PULSE 101; RESP 22; O2SAT 98
--- NOTE | 2016-09-22 23:29 | ED.REPORT ---
HPI-Psychiatric Illness Date of Service Sep 22, 2016 ED Provider: Gennaro Blood MD Patient is a 26 year old female with a history of depression with self-harm who was last seen in the ED for self-inflicted laceration two nights ago presents to the ED with several lacerations to her left arm that she inflicted this evening, with one laceration that is substantially bleeding on arrival to the ED. Patient arrives with the arm wrapped and blood on her shirt. She used a razor blade to cut herself. The patient admits that she frequently cuts herself , as a form of pain relief. Patient was seen in the ED 2 days for this complaint , receiving 8 sutures, with the patient claiming that she simply cut too deep. The patient denied being suicidal at that time and agreed to stay safe, ultimately discharged home. Patient admits that she has been cutting herself more frequently recently. Patient states that she has chronic pain and that cutting herself is a way of dealing with her physical pain. The patient denies doing anything else to harm herself tonight and agrees not to harm herself in the ED. The patient has an upcoming appointment to see a provider at [facility], but it is not for another 2 weeks. Patient admits that she needs to see a counselor in the immediate future. Nursing Notes Stated Complaint: SELF INFLICTED L ARM LAC Chief Complaint: Extremity Trauma Nursing Notes Reviewed: Yes Allergies: Coded Allergies: Penicillins (Verified Allergy, Unknown, hives, 09/22/16) amoxicillin (Verified Allergy, Unknown, rash, 09/22/16) Scheduled Ciprofloxacin (Cipro) 500 Mg Tablet 500 MG PO BID Ciprofloxacin (Ciprofloxacin) 500 Mg Tablet 500 MG PO BID Etonogestrel (Nexplanon) 68 Mg Implant 68 MG SQ DAILY Gabapentin (Gabapentin) 600 Mg Tablet 600 MG PO TID Tamsulosin (Flomax) 0.4 Mg Capsule 0.4 MG PO DAILY Venlafaxine ER (Effexor XR) 37.5 Mg Capsule 37.5 MG PO DAILY Scheduled PRN Hydrocodone-Acetaminophen 5-300 mg (Hydrocodone-Acetaminophen 5-300 mg) 1 Each Tablet 1 TABLET PO Q4H PRN PRN For Pain Hydrocodone-Acetaminophen 5-325 mg (Hydrocodone-Acetaminophen 5-325 mg) 1 Each Tablet 1-2 TABLET PO Q4H PRN PRN For Pain Hydrocodone-Acetaminophen 5-325 mg (Hydrocodone-Acetaminophen 5-325 mg) 1 Each Tablet 1 TABLET PO Q4H PRN PRN For Pain Ibuprofen (Ibuprofen) 600 Mg Tablet 600 MG PO QID PRN PRN For Pain Ondansetron ODT (Zofran ODT) 4 Mg Tablet 4 MG PO Q4H PRN PRN For Nausea oxyCODONE-Acetaminophen 5-325 mg (oxyCODONE-Acetaminophen 5-325 mg) 1 Each Tablet 1-2 TAB PO Q6H PRN PRN For Pain General Time Seen by MD: 23:23 Chief Complaint Other (self-inflicted laceration to the left arm) Hx Obtained From: Patient Arrived By: Walk-in Onset Occurred: Just prior to arrival Symptom Duration: Since onset Caused by: Cut self Location: : Arm left Quality: Painful Severity: Current: Mild Severity: Maximum: Mild Recent Healthcare: No recent hospitalization, Recent doctor visit Similar Sx Previous: Yes Risk-Psychiatric Illness Suicide Risk Stratification Suicide Risk Factors - Adult: No: Alcohol use, Substance abuse RF Statements: Risk factors reviewed Past Medical History Past Medical History Notes: Urologist: Dr. Okeefe Past Medical History depression with self-cutting Pyelonephritis Kidney stones Suspected right-sided ureteropelvic junction obstruction s/p stenting on 05/12/2016 chronic flank pain related to kidney stones and prior stenting Chlamydia history of IVDA Past Surgical History right sided double-J stent placement removed 06/2016 Reports: Cholecystectomy Family History Grandmother: heart disease and prior [place] Mother: Colon cancer no family history of blood clots Smoking History Current Every Day Smoker, Light Tobacco Smoker Social History former IVDA, not currently using. Alcohol Use: Denies alcohol use Drug Use: Denies drug use Other Social History: Good social support, Local resident Ambulatory Status Independent Review of Systems Psychiatric: Reports: Depression Complete sys rev & neg: except as marked. Musculoskeletal: Reports: Extremity pain, Denies: Extremity swelling Hematologic: Reports Bleeding, Denies Bruising Physical Exam Initial Vital Signs Vital Signs (First) Date Time Temp Pulse Resp B/P Pulse Ox O2 Delivery O2 Flow Rate FiO2 09/22/16 23:23 37.0 101 22 105/67 98 Room Air Initial VS: Reviewed, Vital signs normal Skin: Warm, Dry, No cyanosis General/Constitutional: Awake, Alert Behavior: Positive: Tearful Neurologic: Oriented X3, Speech NL, No motor deficits, No sensory deficits Psychiatric: Not suicidal, No hallucinations (does not appear to be reacting to internal stimuli) Abnormal Mood/Affect: Positive: Depressed (appears sad and depressed), Flat affect appears remorseful Head / Eyes: Atraumatic, Normocephalic, PERRL ENT: Airway patent Respiratory / Chest: Breath sounds NL, Breath sounds = bilat, No respiratory distress Cardiovascular: Heart rate NL, Regular rhythm, Cap refill not delayed, Peripheral circulation NL Upper Extremity / MS: Neurologic intact, Vascular intact Trauma / Burn / Environmental: Positive: Laceration (3.3cm laceration to the left forearm, full thickness into the subcutaneous tissue. Small arteriole is bleeding. No involvement of the major neurovascular bundle.) Previous forearm laceration from 09/21/2016 is healing well. Multiple other superficial transverse lacerations to the left forearm, various stages of healing. Lower Extremity / Pelvis / MS: Neurologic intact, Vascular intact Interpretation & Diagnostics Interpretation & Diagnostics: Breathalyzer: 0.00 Urine Tox Screen: Negative Lab Results Interpretation Result Diagram: 09/22/163 09/22/16 2353 Test 09/22/16 23:53 White Blood Count 7.6th/mm3 (3.8-10.1) Red Blood Count 3.96mil/mm3 (3.90-5.20) Hemoglobin 12.2g/dL (12.0-15.6) Hematocrit 35.9% (35.0-46.0) Mean Corpuscular Volume 90.7fL (81-100) Mean Corpuscular Hemoglobin 30.8pg (27.0-35.0) Mean Corpuscular Hemoglobin Concent 34.0% (32.0-37.0) Red Cell Distribution Width 12.0% (12.3-15.4) Platelet Count 278bil/L (150-400) Neutrophils (%) (Auto) 42.5% (40-74) Lymphocytes (%) (Auto) 41.3% (14-46) Monocytes (%) (Auto) 9.1% (4-12) Eosinophils (%) (Auto) 6.3% (0-5) Basophils (%) (Auto) 0.7% (0-3) Sodium Level 141mEq/L (134-144) Potassium Level 3.7mEq/L (3.5-5.2) Chloride Level 103mEq/L (97-108) Carbon Dioxide Level 25mmol/L (18-29) Blood Urea Nitrogen 7mg/dL (6-20) Creatinine 0.80mg/dL (0.57-1.00) Estimat Glomerular Filtration Rate 122mL/min (>59) Glucose Level 112mg/dL (60-99) Calcium Level 8.7mg/dL (8.5-10.1) Total Bilirubin 0.2mg/dL (0.0-1.2) Aspartate Amino Transf (AST/SGOT) 41U/L (0-50) Alanine Aminotransferase (ALT/SGPT) 37U/L (0-32) Alkaline Phosphatase 151U/L (25-150) Total Protein 6.9g/dL (6.4-8.4) Albumin 4.1g/dL (3.4-5.0) Thyroid Stimulating Hormone (TSH) 2.280uIU/mL (0.450-4.500) Procedures Laceration Management Time: 00:46 Procedure Performed by: ED physician Consent / Setup / Site Prep: Consent from patient, Time-out performed, Hand hygiene observed, Stand sterile technique Location of Wound: left forearm Wound Length: 3 cm (3.3) Local Anesthesia: Lidocaine w epi 1% Wound Preparation: Shurclens, Normal saline Debridement: None Irrigation: Copious Foreign Body Explore / Removal: Explored for foreign body Repair Skin: Nylon (5-0) # Sutures - Skin: 5 Closure Layers: 1 Suture Technique: Simple Post-Procedure / Complications: Antibiotic oint applied, Dressing applied, No complications, Condition improved, Tolerated procedure well, Patient stable Re-Eval/Medical Decision Med Decision/Clinical Course 26-year-old female who was seen by me 2-3 days ago with self-inflicted cutting of the forearm. She has several transverse cuts which are very superficial but the one cut was much deeper and required sutures. She has an upcoming appointment at mental health and felt safe for discharge. However she cut again last evening and presents with a even deeper cut involving a small artery. There is no distal neurovascular or tendon deficit. The wound was repaired and hemostasis was obtained. Her care will be turned over change of shift to Dr. Mcintosh pending PHYSICAL THERAPY TEACHER evaluation and arrangements for same day outpatient crisis counseling. Source of Hx: Old records Re-Evaluation/Progress #1: Time of Eval: 00:45 Patient Status: Condition improved Re-Evaluation/Progress Note: Rechecked the patient, who has been able to sleep in the ED. Laceration repaired. Patient admits that she needs to see a psychiatric provider in the near future, but currently only has an appointment at [facility] in a few weeks. Patient will sleep in the ED overnight and be evaluated by an PHYSICAL THERAPY TEACHER in the morning, to set up her with close psychiatric follow-up. The patient understands and agrees with this plan. All questions were addressed. Re-Evaluation/Progress #2: Time of Eval: 05:07 Re-Evaluation/Progress Note: Patient is sleeping in the ED comfortably. Counseled Regarding: Diagnosis, Lab results Discharge & Departure Shift Change Sign-Out Patient Care Transferred: Yes Discussed Complaint(s): Yes Laboratory Evaluation: Back, reviewed by me Additonal Information: Awaiting PHYSICAL THERAPY TEACHER evaluation Impression: Primary Impression: Laceration of left forearm Encounter type: initial encounter Qualified Code: S51.812A - Laceration without foreign body of left forearm, initial encounter Additional Impressions: Deliberate self-cutting Depression Depression Type: major depressive disorder Major depression recurrence: recurrent Active/Remission status: currently active Major depression episode severity: moderate Qualified Code: F33.1 - Major depressive disorder, recurrent, moderate Care Transferred to: Dr. Mcintosh Care Transferred at: 06:00 Jaylen Attestation Portions of this note were transcribed by Gayla Moreland. I, Dr. Blood personally performed the history, physical exam and medical decision-making; I reviewed and confirmed the accuracy of the information in the transcribed note. Signed by: Jaylen Matt, 09/23/2016 0510 Gennaro Blood MD Sep 22, 2016 23:29 Gayla Moreland Sep 22, 2016 23:33
[2016-09-22] MEDS ORDERED: LORazepam 1 mg Tablet PO ONE (23:35)
[2016-09-23 00:07] LABS: BASOPHILS % (AUTO) 0.7 % (0-3); EOSINOPHILS % (AUTO) 6.3 % (0-5); MONOCYTES % (AUTO) 9.1 % (4-12); Mean Corpuscular Hemoglobin 30.8 pg (27.0-35.0); Mean Corpuscular Volume 90.7 fL (81-100); NEUTROPHILS % (AUTO) 42.5 % (40-74); Platelet Count 278 bil/L (150-400)
[2016-09-23] MEDS ORDERED: HYDROcodone-APAP 5-325 mg Tablet PO ONE (01:15)
[2016-09-23 02:45] VITALS: BP 124/68; PULSE 84; RESP 14; O2SAT 97
[2016-09-23 06:17] VITALS: BP 118/70; PULSE 78; RESP 14; O2SAT 98
[2016-09-23 11:55] VITALS: BP 92/36; PULSE 88; RESP 20; O2SAT 99
== END 2016-09-23 11:56 | disposition home or self-care (01) ==
LOC: SED 23:14
DX: F33.1 Major depressive disorder, recurrent, moderate (principal); S51.812A Laceration without foreign body of left forearm, initial encounter; X78.8XXA Intentional self-harm by other sharp object, initial encounter; Y93.89 Activity, other specified; Y92.9 Unspecified place or not applicable; Y99.8 Other external cause status; Z90.49 Acquired absence of other specified parts of digestive tract; F17.200 Nicotine dependence, unspecified, uncomplicated; Z88.0 Allergy status to penicillin; Z88.1 Allergy status to other antibiotic agents

== ENCOUNTER 2016-09-28 14:30 | Emergency (ER) | payer OTHER ==
[~2016-09-28] VITALS: Ht 162.6 cm; Wt 81.8 kg
[2016-09-28 14:33] VITALS: BP 135/83; PULSE 106; RESP 16; O2SAT 96
--- NOTE | 2016-09-28 15:14 | ED.REPORT ---
HPI-Recheck W/B/S Date of Service Sep 28, 2016 ED Provider: Nguyễn Santiago DO A 26 year old female with a medical history including kidney stones, depression , and self-harm presents to the ED with left forearm pain and redness around sutured wound sites onset eight days ago. Associated symptoms include pain and numbness in the fingers of her left hand. The patient was seen in the ED for suture placement twice in the last eight days for self-inflicted wounds to her forearm. She recently began seeing a counselor and currently denies suicidal ideation. She denies previous suicide attempts. Nursing Notes Stated Complaint: NEEDS STITCHES REMOVED Chief Complaint: Wound Recheck/Suture Removal Nursing Notes Reviewed: Yes Allergies: Coded Allergies: Penicillins (Verified Allergy, Unknown, hives, 09/22/16) amoxicillin (Verified Allergy, Unknown, rash, 09/22/16) Scheduled Ciprofloxacin (Cipro) 500 Mg Tablet 500 MG PO BID Ciprofloxacin (Ciprofloxacin) 500 Mg Tablet 500 MG PO BID Etonogestrel (Nexplanon) 68 Mg Implant 68 MG SQ DAILY Gabapentin (Gabapentin) 600 Mg Tablet 600 MG PO TID Tamsulosin (Flomax) 0.4 Mg Capsule 0.4 MG PO DAILY Venlafaxine ER (Effexor XR) 37.5 Mg Capsule 37.5 MG PO DAILY Scheduled PRN Hydrocodone-Acetaminophen 5-300 mg (Hydrocodone-Acetaminophen 5-300 mg) 1 Each Tablet 1 TABLET PO Q4H PRN PRN For Pain Hydrocodone-Acetaminophen 5-325 mg (Hydrocodone-Acetaminophen 5-325 mg) 1 Each Tablet 1-2 TABLET PO Q4H PRN PRN For Pain Hydrocodone-Acetaminophen 5-325 mg (Hydrocodone-Acetaminophen 5-325 mg) 1 Each Tablet 1 TABLET PO Q4H PRN PRN For Pain Ibuprofen (Ibuprofen) 600 Mg Tablet 600 MG PO QID PRN PRN For Pain Ondansetron ODT (Zofran ODT) 4 Mg Tablet 4 MG PO Q4H PRN PRN For Nausea oxyCODONE-Acetaminophen 5-325 mg (oxyCODONE-Acetaminophen 5-325 mg) 1 Each Tablet 1-2 TAB PO Q6H PRN PRN For Pain General Time Seen by Provider: 15:14 Chief Complaint Wound check, Suture removal Wound / Injury Type: Laceration Prior Tx of Wound / Injury: Sutured Hx Obtained From: Patient Arrived By: Walk-in Onset Occurred: More than a week ago... (8 days) Symptom Duration: Since onset Progression Since Onset: Gradually worsening Location: Left forearm, left fingers Quality: Painful Severity: Current: Moderate Severity: Maximum: Moderate Associated with: Reports: Redness, Denies: Fever Pertinent Negative: Relieved by nothing Immunizations: Tetanus not up to date Recent Healthcare: Recent doctor visit Similar Sx Previous: Yes Past Medical History Past Medical History Notes: Urologist: Dr. 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 Alcohol Use: Denies alcohol use Drug Use: Denies drug use Other Social History: Good social support, Local resident Ambulatory Status Independent Review of Systems Review of Systems Note: + sutured wound sites left forearm Constitutional: Denies: Fever Skin: Reports Rash (Left forearm) Complete sys rev & neg: except as marked. Respiratory: Denies: Non-productive cough, Shortness of breath GI: Denies: Vomiting Musculoskeletal: Reports: Extremity pain (Left forearm, left fingers) Neurologic: Reports: Numbness (Left fingers) Psychiatric: Denies: Suicidal ideation Physical Exam Initial Vital Signs Vital Signs (First) Date Time Temp Pulse Resp B/P Pulse Ox O2 Delivery O2 Flow Rate FiO2 09/28/16 14:33 106 16 135/83 96 Room Air 09/28/16 15:50 36.7 Initial VS: Reviewed Head / Eyes: Atraumatic, Normocephalic ENT: Conjunctiva normal, No scleral icterus Neck: Supple, Full range of motion Respiratory: Breath sounds normal, Clear to auscultation, No respiratory distress Cardiovascular: Regular rate & rhythm, Heart sounds normal Neurologic: Alert, Oriented, Nonfocal Psychiatric: Mood/affect normal, Behavior normal, Normal thought content Skin: Warm, Dry Erythema surrounding wound sites to left forearm General/Constitutional: Awake, Alert Procedures Suture Removal Proximal wound appears infected Time: 15:30 Procedure Performed by: ED physician Wound Condition: Tendon function normal Number Removed: Removed sutures, All Re-Eval/Medical Decision Med Decision/Clinical Course Mild wound infection. No abscess. She still has some ulnar nerve sensory distribution injury. I will refer her to orthopedics. The wound has been well cleaned and dressed with bacitracin. Course of Keflex should take care of it. She has never had methicillin-resistant staph aureus. I talked her about the pain. She seems at least have moderate pain that ibuprofen has not been helping. A short course of [place] as prescribed. I long discussion with her and drugs and drugs of abuse. She has never overdosed and [place]. She has never become addicted the pills. She will take the medication as prescribed with the understanding that it can be habit forming. She will follow up as instructed. Source of Hx: Old records Re-Evaluation/Progress : Time of Eval: 15:30 Patient Status: Condition improved Re-Evaluation/Progress Note: Suture removal performed. Discussed with patient diagnosis and plan for discharge. Follow-up and return to the ER instructions given. Patient agrees with plan for care and all questions were addressed. Counseled Regarding: Diagnosis, Need for follow-up, When/why to return to ED Discharge & Departure Impression: Primary Impression: Wound infection Additional Impression: Visit for suture removal Disposition: Home Discharge Condition All VS Reviewed: Yes Condition: Improved Patient Instructions: Suture Removal (ED), Wound Infection (DC) Additional Instructions: Thank you for entrusting us with your care. Keep the wound dressed. Please take Keflex four times daily for five days, as prescribed. 1-2 Vicodin every six hours as needed for pain. Do not drink alcohol, drive, or consume acetaminophen while taking Vicodin. Call your primary care provider or the referred clinic tomorrow for a wound check appointment in 7-10 days. Call the referred orthopedist tomorrow for an appointment to discuss your potential nerve damage. Return to the ER with any new or worsening symptoms. Referrals: NOPCP (PCP) Bautista Barrera DO [facility] Scribe Attestation Portions of this note were transcribed by Genevieve Canales. I, Dr. Santiago, personally performed the history, physical exam, and medical decision-making; I reviewed and confirmed the accuracy of the information in the transcribed note. Signed by: Jaylen Conway, 09/28/2016, 16:05 copies to: Bautista Barrera DO; [facility] Nguyễn Santiago DO Sep 28, 2016 15:14 GENEVIEVE CANALES Sep 28, 2016 15:28
[2016-09-28] MEDS ORDERED: TdaP Vaccine 0.5 mL Inj IM ONE (15:30)
[2016-09-28] MEDS ORDERED: HYDROcodone-APAP 5-325 mg Tablet PO ONE (15:30)
[2016-09-28 15:50] VITALS: BP 130/82; PULSE 98; RESP 18; O2SAT 96
== END 2016-09-28 15:51 | disposition home or self-care (01) ==
LOC: SED 14:30
DX: T81.4XXA Infection following a procedure, initial encounter (principal); Y84.8 Other medical procedures as the cause of abnormal reaction of the patient, or of later complication, without mention of misadventure at the time of the procedure; Y92.9 Unspecified place or not applicable; Y93.89 Activity, other specified; Y99.8 Other external cause status; F32.9 Major depressive disorder, single episode, unspecified; F17.200 Nicotine dependence, unspecified, uncomplicated; Z48.02 Encounter for removal of sutures; Z87.442 Personal history of urinary calculi; Z91.5 Personal history of self-harm; Z88.0 Allergy status to penicillin

== ENCOUNTER 2016-10-03 14:48 | Emergency (ER) | payer OTHER ==
[~2016-10-03] VITALS: Ht 162.6 cm; Wt 81.8 kg
[2016-10-03 14:52] VITALS: BP 121/80; PULSE 95; RESP 16; O2SAT 97
--- NOTE | 2016-10-03 16:08 | ED.REPORT ---
HPI-General Illness Date of Service Oct 03, 2016 ED Provider: Mamie Damian History of Present Illness: 26-year-old female here for med refill she takes gabapentin 600 mg 3 times a day as well as venlafaxine 37.5 mg ER 3 times a day. She last took both meds on Tuesday morning she left them in [place] when visiting family. 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 She went to the urgent care prior to coming to emergency room and she was declined refill. The urgent care nurse practitioner called to give us a heads-up this patient may be arriving and was upset. Denies SI or HI. States she feels safe going home today. Has follow-up appointment on Tuesday with [facility] for new PCP the past she has gotten meds from the urgent care Nursing Notes Stated Complaint: WOUND RECHECK Chief Complaint: General Complaint Nursing Notes Reviewed: Yes Allergies: Coded Allergies: Penicillins (Verified Allergy, Unknown, hives, 09/22/16) amoxicillin (Verified Allergy, Unknown, rash, 09/22/16) Scheduled Ciprofloxacin (Cipro) 500 Mg Tablet 500 MG PO BID Ciprofloxacin (Ciprofloxacin) 500 Mg Tablet 500 MG PO BID Etonogestrel (Nexplanon) 68 Mg Implant 68 MG SQ DAILY Gabapentin (Gabapentin) 600 Mg Tablet 600 MG PO TID Gabapentin (Gabapentin) 600 Mg Tablet 600 MG PO TID Tamsulosin (Flomax) 0.4 Mg Capsule 0.4 MG PO DAILY Venlafaxine ER (Effexor XR) 37.5 Mg Capsule 37.5 MG PO DAILY Venlafaxine ER (Venlafaxine ER) 37.5 Mg Tab.er.24 37.5 MG PO TID Scheduled PRN Hydrocodone-Acetaminophen 5-300 mg (Hydrocodone-Acetaminophen 5-300 mg) 1 Each Tablet 1 TABLET PO Q4H PRN PRN For Pain Hydrocodone-Acetaminophen 5-325 mg (Hydrocodone-Acetaminophen 5-325 mg) 1 Each Tablet 1-2 TABLET PO Q4H PRN PRN For Pain Hydrocodone-Acetaminophen 5-325 mg (Hydrocodone-Acetaminophen 5-325 mg) 1 Each Tablet 1 TABLET PO Q4H PRN PRN For Pain Ibuprofen (Ibuprofen) 600 Mg Tablet 600 MG PO QID PRN PRN For Pain Ondansetron ODT (Zofran ODT) 4 Mg Tablet 4 MG PO Q4H PRN PRN For Nausea oxyCODONE-Acetaminophen 5-325 mg (oxyCODONE-Acetaminophen 5-325 mg) 1 Each Tablet 1-2 TAB PO Q6H PRN PRN For Pain General Time Seen by MD: 15:57 Chief Complaint Medication refill Hx Obtained From: Patient Arrived By: Walk-in Sudden in Onset?: Yes Onset Occurred: Yesterday Symptom Duration: Since onset Recent Healthcare: Recent doctor visit Similar Sx Previous: No Past Medical History Past Medical History Notes: Urologist: Dr. Okeefe Past Medical History Depression with self-cutting Pyelonephritis Kidney stones Suspected right-sided ureteropelvic junction obstruction s/p stenting on 05/12/2016 Chronic flank pain related to kidney stones and prior stenting Chlamydia History of IVDA Past Surgical History right sided double-J stent placement removed 06/2016 Reports: Cholecystectomy Family History Grandmother: heart disease and prior [place] Mother: Colon cancer no family history of blood clots Smoking History Current Every Day Smoker, Light Tobacco Smoker Social History Former IVDA, not currently using. Alcohol Use: Denies alcohol use Drug Use: Denies drug use Other Social History: Good social support, Local resident Ambulatory Status Independent Review of Systems med refill, denies complaints Complete sys rev & neg: except as marked. Physical Exam Vital Signs Vital Signs Date Time Temp Pulse Resp B/P Pulse Ox O2 Delivery O2 Flow Rate FiO2 10/03/16 14:52 36.6 95 16 121/80 97 Room Air General/Constitutional: Well-developed, Well-nourished Head / Eyes: Atraumatic, Normocephalic, PERRL Respiratory: Breath sounds normal, Clear to auscultation, No respiratory distress Cardiovascular: Regular rate & rhythm, Heart sounds normal, Intact distal pulses Skin: Warm, Dry, No cyanosis Neurologic: Alert, Oriented, Nonfocal Psychiatric: Mood/affect normal, Behavior normal, Normal thought content Re-Eval/Medical Decision Med Decision/Clinical Course will give a few days of meds. Discharge & Departure Primary Impression: Nerve damage Additional Impression: Mental health disorder Disposition: Home Discharge Condition All VS Reviewed: Yes Condition: Stable Additional Instructions: Taking meds as prescribed follow up with your PCP on Tuesday as planned. Return for SI or any worsening symptoms Referrals: NOPCP (PCP) EDSupervising Provider for APC: Sd Interiano MD, Linnea K ARNP Oct 03, 2016 16:08
[2016-10-03] MEDS ORDERED: GABA600T2 PO (16:09)
[2016-10-03] MEDS ORDERED: VENL37.587 PO (16:10)
== END 2016-10-03 16:46 | disposition home or self-care (01) ==
LOC: SED 14:48
DX: M79.2 Neuralgia and neuritis, unspecified (principal); F99 Mental disorder, not otherwise specified; F41.9 Anxiety disorder, unspecified; F32.9 Major depressive disorder, single episode, unspecified; F17.200 Nicotine dependence, unspecified, uncomplicated; Z76.0 Encounter for issue of repeat prescription; Z88.0 Allergy status to penicillin

== ENCOUNTER 2016-10-04 22:20 | Emergency (ER) | payer OTHER ==
[~2016-10-04] VITALS: Ht 160 cm; Wt 86.0 kg
[~2016-10-04 22:20] MED LIST changes: +VENL37.587 PO
[2016-10-04 22:23] VITALS: BP 117/78; PULSE 96; RESP 18; O2SAT 98
--- NOTE | 2016-10-04 23:05 | ED.REPORT ---
HPI-Abd Pain F Under 40 Date of Service Oct 04, 2016 ED Provider: Dr. Donte Sanchez M.D. A 26 year old female with a medical history including pyelonephritis, kidney stones, and suspected right-sided ureteropelvic junction obstruction s/p stenting presents to the ED with hematuria onset today. Associated symptoms include diarrhea, lower back pain, lower abdominal pain, subjective fever, dysuria described as "pressure," and nausea. The patient denies vomiting. She has had an IUD for two years and her last normal menstrual period was two years ago. The patient is a frequent ED visitor, with several visits with similar symptoms. Nursing Notes Stated Complaint: KIDNEY/ABDOMINAL PAIN/HEMATURIA Chief Complaint: Female Abdominal Pain Nursing Notes Reviewed: Yes Allergies: Coded Allergies: Penicillins (Verified Allergy, Unknown, hives, 09/22/16) amoxicillin (Verified Allergy, Unknown, rash, 09/22/16) Scheduled Cephalexin (Keflex) 500 Mg Capsule 500 MG PO QID Ciprofloxacin (Cipro) 500 Mg Tablet 500 MG PO BID Ciprofloxacin (Ciprofloxacin) 500 Mg Tablet 500 MG PO BID Etonogestrel (Nexplanon) 68 Mg Implant 68 MG SQ DAILY Gabapentin (Gabapentin) 600 Mg Tablet 600 MG PO TID Gabapentin (Gabapentin) 600 Mg Tablet 600 MG PO TID Tamsulosin (Flomax) 0.4 Mg Capsule 0.4 MG PO DAILY Venlafaxine ER (Effexor XR) 37.5 Mg Capsule 37.5 MG PO DAILY Venlafaxine ER (Venlafaxine ER) 37.5 Mg Tab.er.24 37.5 MG PO TID Scheduled PRN Hydrocodone-Acetaminophen 5-300 mg (Hydrocodone-Acetaminophen 5-300 mg) 1 Each Tablet 1 TABLET PO Q4H PRN PRN For Pain Hydrocodone-Acetaminophen 5-325 mg (Hydrocodone-Acetaminophen 5-325 mg) 1 Each Tablet 1-2 TABLET PO Q4H PRN PRN For Pain Hydrocodone-Acetaminophen 5-325 mg (Hydrocodone-Acetaminophen 5-325 mg) 1 Each Tablet 1 TABLET PO Q4H PRN PRN For Pain Ibuprofen (Ibuprofen) 600 Mg Tablet 600 MG PO QID PRN PRN For Pain Ondansetron ODT (Zofran ODT) 4 Mg Tablet 4 MG PO Q4H PRN PRN For Nausea Phenazopyridine (Phenazopyridine) 200 Mg Tablet 200 MG PO TID PRN PRN dysuria oxyCODONE-Acetaminophen 5-325 mg (oxyCODONE-Acetaminophen 5-325 mg) 1 Each Tablet 1-2 TAB PO Q6H PRN PRN For Pain General Time Seen by MD: 23:05 Chief Complaint Other (Hematuria) Hx Obtained From: Patient Arrived By: Walk-in Sudden in Onset?: Yes Onset Occurred: 9 - 12 hours ago Symptom Duration: Since onset Location: : Abdomen lower: Back (Lower) Quality: Painful Severity: Current: Moderate Severity: Maximum: Moderate Associated with: Reports: Diarrhea, Fever (Subjective), Nausea, Denies: Vomiting Pertinent Negative: Relieved by nothing Context Related History: Reports: Abdominal surgery Recent Healthcare: Recent doctor visit Similar Sx Previous: Yes Past Medical History Past Medical History Notes: Urologist: Dr. Okeefe Past Medical History Depression with self-cutting Arm nerve damage Pyelonephritis Kidney stones Suspected right-sided ureteropelvic junction obstruction s/p stenting on 05/12/2016 Chronic flank pain related to kidney stones and prior stenting Chlamydia History of IVDA Past Surgical History Right sided double-J stent placement removed 06/2016 Reports: Cholecystectomy Family History Grandmother: heart disease and prior [place] Mother: Colon cancer no family history of blood clots Smoking History Current Every Day Smoker, Light Tobacco Smoker Social History Former IVDA, not currently using. Alcohol Use: Denies alcohol use Drug Use: Denies drug use Other Social History: Good social support, Local resident Ambulatory Status Independent Review of Systems Constitutional: Reports: Fever (Subjective) GI: Reports: Abdominal pain (Lower), Diarrhea, Nausea, Denies: Vomiting Female: Reports: Dysuria ("pressure"), Hematuria Musculoskeletal: Reports: Back pain (Lower) Complete sys rev & neg: except as marked. Physical Exam Initial Vital Signs Vital Signs (First) Date Time Temp Pulse Resp B/P Pulse Ox O2 Delivery O2 Flow Rate FiO2 10/04/16 22:23 36.8 96 18 117/78 98 Room Air Initial VS: Reviewed Head / Eyes: Atraumatic, Normocephalic ENT: Conjunctiva normal, No scleral icterus Neck: Supple, Full range of motion Skin: Warm, Dry Neurologic: Alert, Oriented, Nonfocal Psychiatric: Mood/affect normal, Behavior normal, Normal thought content General/Constitutional: Awake, Alert Respiratory / Chest: Breath sounds NL, Breath sounds = bilat, No respiratory distress Cardiovascular: Heart rate NL, Regular rhythm, Heart sounds NL Abdomen: Soft Tenderness/Guarding/Rebound: Positive: Tender RLQ... Bowel Sounds / Distention: Positive: Bowel sounds hyperactive Interpretation & Diagnostics URINE DIPSTICK: 1.000 sp gravity 7 pH Trace Protein Normal Urobilinogen ~250 [place]/ml Blood Otherwise Negative Lab Results Interpretation Result Diagram: 10/05/16 0016 10/05/16 0016 Test 10/04/16 23:12 10/05/16 00:16 Urine Color Yellow (YELLOW) Urine Appearance Cloudy (CLEAR,HAZY) Urine pH 7.0 (5.0-8.0) Urine Specific Gladys 1.010 (1.003-1.035) Urine Protein Negativemg/dL (NEG,TRACE) Urine Glucose (UA) Negativemg/dL (NEGATIVE) Urine Ketones Negativemg/dL (NEGATIVE) Urine Occult Blood Large (NEGATIVE) Urine Nitrite Negative (NEGATIVE) Urine Bilirubin Negative (NEGATIVE) Urine Urobilinogen Normalmg/dL (NORMAL) Urine Leukocyte Esterase Negative (NEGATIVE) Urine RBC >50/hpf (0-2) Urine WBC 0-5/hpf (0-5) Urine Epithelial Cells Moderate/hpf (NONE-MOD) Urine Crystals None seen (NONE SEEN) Urine Bacteria Few/hpf (NONE-FEW) Urine Hyaline Casts None/lpf (NONE) Urine Granular Casts None seen (NONE SEEN) Urine Waxy Casts None seen (NONE SEEN) Urine Red Blood Cell Casts None seen (NONE SEEN) Urine White Blood Cell Casts None seen (NONE SEEN) Urine Mucus None seen (None Seen) Urine Trichomonas None seen (NONE SEEN) Urine Yeast None (NONE SEEN) Urinalysis Comment None Urine Culture Reflexed Not indicated White Blood Count 7.9th/mm3 (3.8-10.1) Red Blood Count 4.12mil/mm3 (3.90-5.20) Hemoglobin 12.7g/dL (12.0-15.6) Hematocrit 37.0% (35.0-46.0) Mean Corpuscular Volume 89.8fL (81-100) Mean Corpuscular Hemoglobin 30.8pg (27.0-35.0) Mean Corpuscular Hemoglobin Concent 34.3% (32.0-37.0) Red Cell Distribution Width 12.0% (12.3-15.4) Platelet Count 318bil/L (150-400) Neutrophils (%) (Auto) 53.6% (40-74) Lymphocytes (%) (Auto) 34.4% (14-46) Monocytes (%) (Auto) 8.2% (4-12) Eosinophils (%) (Auto) 2.9% (0-5) Basophils (%) (Auto) 0.8% (0-3) Prothrombin Time 10.0sec (8.1-12.5) Prothromb Time International Ratio 0.94ratio Sodium Level 141mEq/L (134-144) Potassium Level 3.6mEq/L (3.5-5.2) Chloride Level 103mEq/L (97-108) Carbon Dioxide Level 24mmol/L (18-29) Blood Urea Nitrogen 9mg/dL (6-20) Creatinine 0.53mg/dL (0.57-1.00) Estimat Glomerular Filtration Rate 197mL/min (>59) Glucose Level 100mg/dL (60-99) Lactic Acid Level 1.2mmol/L (0.4-2.0) Calcium Level 9.1mg/dL (8.5-10.1) Magnesium Level 2.0mg/dL (1.6-2.6) Total Bilirubin < 0.2mg/dL (0.0-1.2) Aspartate Amino Transf (AST/SGOT) 24U/L (0-50) Alanine Aminotransferase (ALT/SGPT) 32U/L (0-32) Alkaline Phosphatase 141U/L (25-150) Total Protein 7.0g/dL (6.4-8.4) Albumin 4.2g/dL (3.4-5.0) Lipase 57U/L (13-60) Human Chorionic Gonadotropin, Qual Negative (Negative) CT Abd / Pelvis Interpretation CONCLUSION: No CT evidence of acute intra-abdominal pathology. Transmitted to ED by Will Antonio M.D. at 10/05/2016 - 2:26:47 AM PST Study type: Abdominal CT IV contrast Interpretation / Wet Read by: Wet read ED physician Re-Eval/Medical Decision Med Decision/Clinical Course Med Decision/Clinical Course: 26-year-old female presents with dysuria frequency urgency and some pressure to radiating to her back. Urine is borderline infected appearing with hematuria noted. Ultimately CT was obtained given her persistent symptoms and is essentially negative. She is requesting opioid pain relievers. It was pointed out from her [facility] report, that she has had opiates prescribed by nine different providers just in the past three months. I declined to provide additional opiates for her, and suggested she follow up with her PCP and obtain single coverage for her narcotic prescriptions as per state law. Begun with Rocephin here IV with Keflex to follow. Follow-up with PCP. Source of Hx: Old records Re-Evaluation/Progress : Time of Eval: 02:45 Patient Status: Condition improved Re-Evaluation/Progress Note: Discussed with patient CT and lab results, diagnosis, and plan for discharge. Follow-up and return to the ER instructions given. Patient agrees with plan for care and all questions were addressed. Counseled Regarding: Diagnosis, Lab results, Need for follow-up, When/why to return to ED Discharge & Departure Shift Change Sign-Out Response to Therapy: Improved Primary Impression: Suprapubic pain, acute Additional Impression: UTI (urinary tract infection) Urinary tract infection type: acute cystitis Hematuria presence: with hematuria Qualified Code: N30.01 - Acute cystitis with hematuria Disposition: Home Discharge Condition All VS Reviewed: Yes Condition: Improved Patient Instructions: Urinary Tract Infection in Women (ED) Additional Instructions: Keflex four times daily for seven days. Follow-up with your doctor in the office. Return if any immediate issues. Drink plenty of clear fluids. Referrals: Nelly Calero MD (PCP) Scribe Attestation Portions of this note were transcribed by Genevieve Canales. I, Dr. Sanchez, personally performed the history, physical exam, and medical decision-making; I reviewed and confirmed the accuracy of the information in the transcribed note. Signed by: Jaylen Conway, 10/05/2016, 04:05 copies to: Nelly Calero MD, Christopher W MD Oct 04, 2016 23:05 GENEVIEVE CANALES Oct 04, 2016 23:16
[2016-10-04] MEDS ORDERED: 0.9% Sodium Chloride 1,000 ML IV ONE (23:12)
[2016-10-04] MEDS ORDERED: Ondansetron 2 mg/mL 2 mL Inj IVPUSH ONE (23:15)
[2016-10-04] MEDS ORDERED: Pantoprazole 4 mg/mL 10 mL Inj IVPUSH ONE (23:15)
[2016-10-04 23:56] LABS: APPEARANCE,URINE CLOUDY (CLEAR,HAZY); COLOR,URINE YELLOW (YELLOW); OCCULT BLOOD,URINE LARGE (NEGATIVE); UROBILINOGEN,URINE NORMAL (NORMAL)
[2016-10-05 00:24] LABS: BASOPHILS % (AUTO) 0.8 % (0-3); EOSINOPHILS % (AUTO) 2.9 % (0-5); MONOCYTES % (AUTO) 8.2 % (4-12); Mean Corpuscular Hemoglobin 30.8 pg (27.0-35.0); Mean Corpuscular Volume 89.8 fL (81-100); NEUTROPHILS % (AUTO) 53.6 % (40-74); Platelet Count 318 bil/L (150-400)
[2016-10-05 00:43] LABS: INR 0.94 ratio
[2016-10-05 01:11] LABS: Lipase 57 U/L (13-60)
[2016-10-05] MEDS ORDERED: Phenazopyridine 97.5 mg Tablet PO ONE (02:40)
[2016-10-05] MEDS ORDERED: cefTRIAXone Inj 2,000 MG in Dextrose 5% Minibag Plus 50 ML IV ONE (02:40)
[2016-10-05] MEDS ORDERED: CEPH-512 PO (02:43)
[2016-10-05] MEDS ORDERED: PHEN-777 PO (02:43)
[2016-10-05] MEDS ORDERED: Ketorolac 15 mg/mL Inj IVPUSH ONE (02:50)
[2016-10-05 03:34] VITALS: PULSE 72; RESP 16; O2SAT 98
--- NOTE | 2016-10-05 08:13 | DRSVH ---
PROCEDURE: CT ABDOMEN AND PELVIS WITH CONTRAST ([id number]) INDICATIONS: hematuria, flank pain, rlq abdo pain TECHNIQUE: After the administration of intravenous contrast, 5 mm thick sections acquired from the diaphragm to the symphysis. 5 mm coronal and sagittal reformats were acquired. For radiation dose reduction, the following was used: automated exposure control, adjustment of mA and/or kV according to patient siz e. COMPARISON: CT KUB 09/10/2016, 06/06/2016; CT abdomen and pelvis 05/14/2016 FINDINGS: Preliminary report by shift superintendent radiology Image quality: Excellent. ABDOMEN: Lung bases: Lung bases are clear. Heart size is normal. Solid organs: Liver and spleen are normal in size and enhancement. Gallbladder is either contracted or surgically absent.. Biliary system is non dilated. Pancreas enhances normally. No adrenal nodu les. Kidneys demonstrate normal size and enhancement, without hydronephrosis. Peritoneum and bowel: Bowel loops demonstrate normal wall thickness and caliber. Normal appendix No free fluid or air. Nodes and vessels: No retroperitoneal or mesenteric adenopathy by size criteria. Aorta and inferior vena cava are normal in size. Miscellaneous: No ventral hernias. PELVIS: Genitourinary: Bladder wall thickness is normal. Uterus and ovaries are unremarkable. Miscellaneous: No inguinal hernias or adenopathy. Bones: No suspicious bony lesions. There is a small bone density or calcification over the posterior annulus of the L5-S1 disc. No vertebral body compression fractures. IMPRESSION: 1. No urolithiasis or hydronephrosis. Urinary bladder appears clear. 2. No acute findings in the abdomen or pelvis. Normal appendix. Findings are concordant with the preliminary report Dictated by: Alejandro Torres M.D. on 10/05/2016 at 8:05 Approved by: Alejandro Torres M.D. on 10/05/2016 at 8:11
== END 2016-10-05 03:35 | disposition home or self-care (01) ==
LOC: SED 22:20
DX: N30.01 Acute cystitis with hematuria (principal); F17.200 Nicotine dependence, unspecified, uncomplicated; Z88.0 Allergy status to penicillin; Z88.1 Allergy status to other antibiotic agents
CPT/HCPCS: 36415; 74177; 80053; 81000; 83605; 83690; 83735; 84703; 85025; 85610; 96361; 96365; 96375; 99285; J0696; J2405; J7030; Q9967

== ENCOUNTER 2017-03-16 12:18 | Emergency (ER) | payer OTHER ==
[~2017-03-16] VITALS: Ht 160 cm; Wt 81.8 kg
[~2017-03-16 12:18] MED LIST changes: +CEPH-512 PO; +PHEN-777 PO
[2017-03-16 12:24] VITALS: BP 128/83; PULSE 84; RESP 20; O2SAT 99
--- NOTE | 2017-03-16 12:32 | ED.REPORT ---
HPI-Abd Pain F Under 40 Date of Service Mar 16, 2017 ED Provider: Dr. Velazquez Pt is a 26 year old female with a hx of pyelonephritis and kidney stones presenting to the ED complaining of vomiting and abdominal pain. She states that she began vomiting 2 days ago, then last night she woke up in the night with sharp right flank pain and dysuria. She has required renal shunts in the past for kidney stones. Denies fever, chills, SOB or chest pain. Nursing Notes Stated Complaint: ABDOMINAL PAIN Chief Complaint: Female Abdominal Pain Nursing Notes Reviewed: Yes Allergies: Coded Allergies: Penicillins (Verified Allergy, Unknown, hives, 03/16/17) amoxicillin (Verified Allergy, Unknown, rash, 03/16/17) Scheduled Cephalexin (Keflex) 500 Mg Capsule 500 MG PO QID Ciprofloxacin (Cipro) 500 Mg Tablet 500 MG PO BID Ciprofloxacin (Ciprofloxacin) 500 Mg Tablet 500 MG PO BID Etonogestrel (Nexplanon) 68 Mg Implant 68 MG SQ DAILY Gabapentin (Gabapentin) 600 Mg Tablet 600 MG PO TID Gabapentin (Gabapentin) 600 Mg Tablet 600 MG PO TID Sulfamethoxazole/Trimeth 400-80 mg (Bactrim) 1 Each Tablet 1 TABLET PO BID Tamsulosin (Flomax) 0.4 Mg Capsule 0.4 MG PO DAILY Venlafaxine ER (Effexor XR) 37.5 Mg Capsule 37.5 MG PO DAILY Venlafaxine ER (Venlafaxine ER) 37.5 Mg Tab.er.24 37.5 MG PO TID Scheduled PRN Hydrocodone-Acetaminophen 5-300 mg (Hydrocodone-Acetaminophen 5-300 mg) 1 Each Tablet 1 TABLET PO Q4H PRN PRN For Pain Hydrocodone-Acetaminophen 5-325 mg (Hydrocodone-Acetaminophen 5-325 mg) 1 Each Tablet 1-2 TABLET PO Q4H PRN PRN For Pain Hydrocodone-Acetaminophen 5-325 mg (Hydrocodone-Acetaminophen 5-325 mg) 1 Each Tablet 1 TABLET PO Q4H PRN PRN For Pain Ibuprofen (Ibuprofen) 600 Mg Tablet 600 MG PO QID PRN PRN For Pain Naproxen (Naproxen) 500 Mg Tab 500 MG PO BID PRN PRN For Pain Ondansetron ODT (Zofran ODT) 4 Mg Tablet 4 MG PO Q4H PRN PRN For Nausea Phenazopyridine (Phenazopyridine) 200 Mg Tablet 200 MG PO TID PRN PRN dysuria Phenazopyridine (Pyridium) 200 Mg Tablet 200 MG PO TID PRN PRN For Pain oxyCODONE-Acetaminophen 5-325 mg (oxyCODONE-Acetaminophen 5-325 mg) 1 Each Tablet 1-2 TAB PO Q6H PRN PRN For Pain General Time Seen by MD: 12:31 Chief Complaint Vomiting moderate Hx Obtained From: Patient Arrived By: Walk-in Sudden in Onset?: Yes Onset Occurred: 2 days ago Context of Onset: Sleeping Symptom Duration: Since onset Progression since Onset: Constant Location: : Flank right Quality: Painful Severity: Current: Moderate Severity: Maximum: Severe Recent Healthcare: No recent doctor visit, No recent hospitalization Similar Sx Previous: Yes Past Medical History Past Medical History Notes: Urologist: Dr. Okeefe Past Medical History Depression with self-cutting Arm nerve damage Pyelonephritis Kidney stones Suspected right-sided ureteropelvic junction obstruction s/p stenting on 05/12/2016 Chronic flank pain related to kidney stones and prior stenting Chlamydia History of IVDA Past Surgical History Right sided double-J stent placement removed 06/2016 Reports: Cholecystectomy Family History Grandmother: heart disease and prior [place] Mother: Colon cancer no family history of blood clots Smoking History Current Every Day Smoker, Light Tobacco Smoker Social History Former IVDA, not currently using. Alcohol Use: Denies alcohol use Drug Use: Denies drug use Other Social History: Good social support, Local resident Ambulatory Status Independent Review of Systems Constitutional: Denies: Chills, Fever Respiratory: Denies: Shortness of breath Cardiovascular: Denies: Chest pain GI: Reports: Abdominal pain, Nausea, Vomiting Female: Reports: Dysuria, Flank pain Complete sys rev & neg: except as marked. Physical Exam Initial Vital Signs Vital Signs (First) Date Time Temp Pulse Resp B/P Pulse Ox O2 Delivery O2 Flow Rate FiO2 03/16/17 12:24 36.8 84 20 128/83 99 Room Air Initial VS: Reviewed Head / Eyes: Atraumatic, Normocephalic, PERRL ENT: Mucous membranes moist, Conjunctiva normal, No scleral icterus Extremities: Vascular intact, Neuro intact, No swelling, No tenderness Skin: Warm, Dry, No cyanosis Neurologic: Alert, Oriented, Nonfocal Psychiatric: Mood/affect normal, Behavior normal, Normal thought content General/Constitutional: Awake, Alert, Well appearing Appearance / Presentation: Positive: Obese Respiratory / Chest: Breath sounds NL, Breath sounds = bilat, No respiratory distress, No rales, No rhonchi, No wheezing Cardiovascular: Heart rate NL, Regular rhythm, Heart sounds NL, Peripheral circulation NL Abdomen: Soft, Non-tender Back: Atraumatic Right CVA tenderness Interpretation & Diagnostics Lab Results Interpretation Result Diagram: 03/16/17 1325 03/16/17 1325 Test 03/16/17 13:25 03/16/17 15:36 White Blood Count 7.4th/mm3 (3.8-10.1) Red Blood Count 4.25mil/mm3 (3.90-5.20) Hemoglobin 12.1g/dL (12.0-15.6) Hematocrit 36.1% (35.0-46.0) Mean Corpuscular Volume 84.9fL (81-100) Mean Corpuscular Hemoglobin 28.5pg (27.0-35.0) Mean Corpuscular Hemoglobin Concent 33.5% (32.0-37.0) Red Cell Distribution Width 12.9% (12.3-15.4) Platelet Count 304bil/L (150-400) Neutrophils (%) (Auto) 64.0% (40-74) Lymphocytes (%) (Auto) 27.1% (14-46) Monocytes (%) (Auto) 6.7% (4-12) Eosinophils (%) (Auto) 1.8% (0-5) Basophils (%) (Auto) 0.3% (0-3) Sodium Level 140mEq/L (134-144) Potassium Level 3.4mEq/L (3.5-5.2) Chloride Level 102mEq/L (97-108) Carbon Dioxide Level 22mmol/L (18-29) Blood Urea Nitrogen 10mg/dL (6-20) Creatinine 0.64mg/dL (0.57-1.00) Estimat Glomerular Filtration Rate 158mL/min (>59) Glucose Level 112mg/dL (60-99) Calcium Level 8.9mg/dL (8.5-10.1) Magnesium Level 2.1mg/dL (1.6-2.6) Total Bilirubin 0.2mg/dL (0.0-1.2) Aspartate Amino Transf (AST/SGOT) 18U/L (0-50) Alanine Aminotransferase (ALT/SGPT) 18U/L (0-32) Alkaline Phosphatase 106U/L (25-150) Total Protein 7.2g/dL (6.4-8.4) Albumin 4.0g/dL (3.4-5.0) Lipase 51U/L (13-60) Urine Color Dark yellow (YELLOW) Urine Appearance Slightly cloudy Urine pH 6.0 (5.0-8.0) Urine Specific B[place] 1.020 (1.003-1.035) Urine Protein Tracemg/dL (NEG,TRACE) Urine Glucose (UA) Negativemg/dL (NEGATIVE) Urine Ketones Negativemg/dL (NEGATIVE) Urine Occult Blood Large (NEGATIVE) Urine Nitrite Negative (NEGATIVE) Urine Bilirubin Negative (NEGATIVE) Urine Urobilinogen Normalmg/dL (NORMAL) Urine Leukocyte Esterase Trace (NEGATIVE) Urine RBC >50/hpf (0-2) Urine WBC 0-5/hpf (0-5) Urine Epithelial Cells Moderate/hpf (NONE-MOD) Urine Crystals None seen (NONE SEEN) Urine Bacteria Few/hpf (NONE-FEW) Urine Hyaline Casts None/lpf (NONE) Urine Granular Casts None seen (NONE SEEN) Urine Waxy Casts None seen (NONE SEEN) Urine Red Blood Cell Casts None seen (NONE SEEN) Urine White Blood Cell Casts None seen (NONE SEEN) Urine Mucus Present (None Seen) Urine Trichomonas None seen (NONE SEEN) Urine Yeast None (NONE SEEN) Urinalysis Comment None Urine Culture Reflexed Indicated CT Abd / Pelvis Interpretation CT KUB: IMPRESSION: 1. No hydronephrosis, nephrolithiasis, hydroureter, or ureterolithiasis. 2. No acute intra-abdominal findings. Normal appendix. Dictated by: Amairani Sargent M.D. on 03/16/2017 at 14:35 Study type: Abdominal CT no contrast Interpretation / Wet Read by: Interpret - Radiologist Re-Eval/Medical Decision Med Decision/Clinical Course Med Decision/Clinical Course: Patient presents with acute on chronic right-sided abdominal and flank pain. Initial differential diagnosis included UTI, pyelonephritis, ureterolithiasis, appendicitis, chronic pain, lateral right abnormality, and less likely PID. Initial workup is unremarkable. After the workup is in the patient states that she has been having vaginal discharge which she did not reveal initially. Discussed at length the need for a pelvic exam, possible pelvic ultrasound. Patient declines these. States that she will follow-up with her regular doctor. Encouraged her to follow-up very soon as an outpatient to have this worked up as well is to return to the ER for any worsening signs or symptoms. Re-Evaluation/Progress #1: Time of Eval: 13:24 Patient Status: Condition improved Re-Evaluation/Progress Note: Discussed plan for Toradol and pepsid. Re-Evaluation/Progress #2: Time of Eval: 15:29 Patient Status: Condition improved Re-Evaluation/Progress Note: Discussed urine and CT results. Pt now reports vaginal discharge, stating that she had unprotected sex 1 month ago. She did not initially report this. Discussed need for a pelvic exam, gonorrhea and Chlamydia, and possibly pelvic ultrasound. Re-Evaluation/Progress #3: Time of Eval: 16:04 Re-Evaluation/Progress Note: Pt declines pelvic exam. Discussed at length risk of infection and pelvic inflammatory disease as a cause for her pain. Continues to decline. She will follow up with a female provider. Discussed plan for discharge. Counseled Regarding: Diagnosis, Lab results, Need for follow-up, When/why to return to ED Discharge & Departure Primary Impression: UTI (urinary tract infection) Disposition: Home Discharge Condition All VS Reviewed: Yes Condition: Improved Additional Instructions: Take Bactrim, Azo, and Naproxen for the infection symptoms. Call your urologist today for a close follow-up appointment. Return to the ER if you develop any new or worsening symptoms. Referrals: Nelly Calero MD (PCP) Jaylen Attestation Portions of this note were transcribed by Cherelle Anderson. I, Dr. Velazquez personally performed the history, physical exam and medical decision-making; I reviewed and confirmed the accuracy of the information in the transcribed note. Signed by: Jaylen Rene, 03/16/2017. copies to: Nelly Calero MDManinder Rodriguez Mar 16, 2017 12:32 CHERELLE ANDERSON Mar 16, 2017 12:36
[2017-03-16] MEDS ORDERED: 0.9% Sodium Chloride 1,000 ML IV ONE (12:38)
[2017-03-16] MEDS ORDERED: Ondansetron 2 mg/mL 2 mL Inj IVPUSH PRN (12:40)
[2017-03-16 13:40] LABS: BASOPHILS % (AUTO) 0.3 % (0-3); EOSINOPHILS % (AUTO) 1.8 % (0-5); MONOCYTES % (AUTO) 6.7 % (4-12); Mean Corpuscular Hemoglobin 28.5 pg (27.0-35.0); Mean Corpuscular Volume 84.9 fL (81-100); Platelet Count 304 bil/L (150-400)
[2017-03-16 14:00] LABS: Magnesium 2.1 mg/dL (1.6-2.6)
[2017-03-16] MEDS ORDERED: Famotidine Inj 20 MG in IV Premix 1 EACH IV ONE (14:15)
[2017-03-16] MEDS ORDERED: HYDROmorphone 0.5 mg/0.5 mL iSecure Syringe IVPUSH PRN (14:15)
--- NOTE | 2017-03-16 14:41 | DRSVH ---
PROCEDURE: CT KUB ([id number]) INDICATIONS: right flank pain TECHNIQUE: Noncontrast 5 mm thick sections acquired from the diaphragms to the symphysis. 5 mm thick coronal an d sagittal reformats were then performed. For radiation dose reduction, the following was used: aut omated exposure control, adjustment of mA and/or kV according to patient size. COMPARISON: [facility], CT, CT KUB, 09/10/2016, 21:11. FINDINGS: Image quality: Excellent. Lung bases: Lung bases are clear. Heart size is normal. Urinary system: Both kidneys are normal in size. No kidney stones. No hydronephrosis or perinephri c fat stranding. Both ureters appear non-dilated throughout their expected courses. Bladder wall th ickness is normal; no calcified bladder stones. The uterus and ovaries are grossly unremarkable in t his noncontrast study. Other solid organs: Liver and spleen are normal in size. Gallbladder is not visualized and may be s urgically absent. Pancreas is normal in contours. No adrenal nodules. Peritoneum and bowel: Unenhanced bowel loops demonstrate normal wall thickness and caliber. The appe ndix is thin walled and gas filled. No free fluid or air. Nodes and vessels: No retroperitoneal or mesenteric adenopathy by size criteria. Aorta and inferior vena cava are normal in caliber. Abdominal wall: No ventral hernias. Pelvis: No free pelvic fluid. No inguinal hernias or adenopathy. Bones: No suspicious bony lesions. No vertebral body compression fractures. IMPRESSION: 1. No hydronephrosis, nephrolithiasis, hydroureter, or ureterolithiasis. 2. No acute intra-abdominal findings. Normal appendix. Dictated by: Amairani Sargent M.D. on 03/16/2017 at 14:35 Approved by: Amairani Sargent M.D. on 03/16/2017 at 14:39
[2017-03-16] MEDS ORDERED: Trimethoprim-Sulfa 160 mg-800 mg Tablet PO ONE (15:30)
[2017-03-16] MEDS ORDERED: HYDROcodone-APAP 5-325 mg Tablet PO ONE (15:50)
[2017-03-16 16:06] LABS: APPEARANCE,URINE SLIGHTLY CLOUDY (CLEAR,HAZY); UROBILINOGEN,URINE NORMAL (NORMAL)
[2017-03-16 16:07] LABS: COLOR,URINE DARK YELLOW (YELLOW); OCCULT BLOOD,URINE LARGE (NEGATIVE)
[2017-03-16] MEDS ORDERED: PHEN-684 PO (16:08)
[2017-03-16] MEDS ORDERED: NPR500T PO (16:08)
[2017-03-16] MEDS ORDERED: SULF-239 PO (16:08)
[2017-03-16 16:55] VITALS: BP 122/70; PULSE 70; RESP 16; O2SAT 98
== END 2017-03-16 16:55 | disposition home or self-care (01) ==
LOC: SED 12:18
DX: N39.0 Urinary tract infection, site not specified (principal); F32.9 Major depressive disorder, single episode, unspecified; F17.200 Nicotine dependence, unspecified, uncomplicated; Z87.442 Personal history of urinary calculi; Z90.49 Acquired absence of other specified parts of digestive tract; Z88.0 Allergy status to penicillin
CPT/HCPCS: 36415; 74176; 80053; 81000; 81025; 83690; 83735; 85025; 87086; 87088; 87491; 87591; 96361; 96374; 96375; 99285; J1170; J1885; J2405; J3490; J7030

== ENCOUNTER 2017-03-21 09:25 | Emergency (ER) | payer OTHER ==
[~2017-03-21] VITALS: Ht 160 cm; Wt 81.8 kg
[~2017-03-21 09:25] MED LIST changes: +NPR500T PO; +PHEN-684 PO; +SULF-239 PO
[2017-03-21 09:36] VITALS: BP 118/81; PULSE 83; RESP 15; O2SAT 97
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
[2017-03-21 10:10] LABS: BASOPHILS % (AUTO) 0.3 % (0-3); EOSINOPHILS % (AUTO) 0.8 % (0-5); MONOCYTES % (AUTO) 5.2 % (4-12); Mean Corpuscular Hemoglobin 28.8 pg (27.0-35.0); Mean Corpuscular Volume 85.9 fL (81-100); NEUTROPHILS % (AUTO) 71.1 % (40-74); Platelet Count 315 bil/L (150-400)
[2017-03-21] MEDS ORDERED: oxyCODONE-Acetamin 5-325 mg Tablet PO ONE (10:25)
[2017-03-21] MEDS ORDERED: cefTRIAXone Inj 250 MG, Lidocaine PF 1% Inj 0.9 ML in Syringe 1 EACH IM ONE (10:25)
[2017-03-21] MEDS ORDERED: OXYC1TAB24 PO (10:34)
== END 2017-03-21 11:11 | disposition home or self-care (01) ==
LOC: SED 09:25
DX: N73.9 Female pelvic inflammatory disease, unspecified (principal); F17.200 Nicotine dependence, unspecified, uncomplicated; Z88.0 Allergy status to penicillin
CPT/HCPCS: 36415; 80053; 85025; 96372; 99284; J0696

== ENCOUNTER 2017-04-03 18:47 | Emergency (ER) | payer OTHER ==
[~2017-04-03] VITALS: Ht 162.6 cm; Wt 79.5 kg
[2017-04-03 18:58] VITALS: BP 117/78; PULSE 99; RESP 20; O2SAT 100
--- NOTE | 2017-04-03 20:25 | ED.REPORT ---
HPI-General Illness Date of Service Apr 03, 2017 ED Provider: Terrance Ngo MD Patient is a 26 year old female who presents to the ED with multiple medical complaints onset today. She reports headache, nausea, vomiting, chills, subjective fever, and low back pain. She denies dysuria, abdominal pain, hematuria, constipation, diarrhea, or any other symptoms. Pt denies recent alcohol use. Admits to recent injection use of heroin but not having W/D symptoms Her last period was 2 years ago due to being on control. Nursing Notes Chief Complaint: FLU/Cold Symptoms Nursing Notes Reviewed: Yes Allergies: Coded Allergies: Penicillins (Verified Allergy, Unknown, hives, 04/03/17) amoxicillin (Verified Allergy, Unknown, rash, 04/03/17) Scheduled Cephalexin (Keflex) 500 Mg Capsule 500 MG PO QID Ciprofloxacin (Cipro) 500 Mg Tablet 500 MG PO BID Ciprofloxacin (Ciprofloxacin) 500 Mg Tablet 500 MG PO BID Etonogestrel (Nexplanon) 68 Mg Implant 68 MG SQ DAILY Gabapentin (Gabapentin) 600 Mg Tablet 600 MG PO TID Gabapentin (Gabapentin) 600 Mg Tablet 600 MG PO TID Sulfamethoxazole/Trimeth 400-80 mg (Bactrim) 1 Each Tablet 1 TABLET PO BID Tamsulosin (Flomax) 0.4 Mg Capsule 0.4 MG PO DAILY Venlafaxine ER (Effexor XR) 37.5 Mg Capsule 37.5 MG PO DAILY Venlafaxine ER (Venlafaxine ER) 37.5 Mg Tab.er.24 37.5 MG PO TID Scheduled PRN Hydrocodone-Acetaminophen 5-300 mg (Hydrocodone-Acetaminophen 5-300 mg) 1 Each Tablet 1 TABLET PO Q4H PRN PRN For Pain Hydrocodone-Acetaminophen 5-325 mg (Hydrocodone-Acetaminophen 5-325 mg) 1 Each Tablet 1-2 TABLET PO Q4H PRN PRN For Pain Hydrocodone-Acetaminophen 5-325 mg (Hydrocodone-Acetaminophen 5-325 mg) 1 Each Tablet 1 TABLET PO Q4H PRN PRN For Pain Ibuprofen (Ibuprofen) 600 Mg Tablet 600 MG PO QID PRN PRN For Pain Naproxen (Naproxen) 500 Mg Tab 500 MG PO BID PRN PRN For Pain Ondansetron ODT (Zofran ODT) 4 Mg Tablet 4 MG PO Q4H PRN PRN For Nausea Phenazopyridine (Phenazopyridine) 200 Mg Tablet 200 MG PO TID PRN PRN dysuria Phenazopyridine (Pyridium) 200 Mg Tablet 200 MG PO TID PRN PRN For Pain oxyCODONE-Acetaminophen 5-325 mg (oxyCODONE-Acetaminophen 5-325 mg) 1 Each Tablet 1-2 TAB PO Q6H PRN PRN For Pain oxyCODONE-Acetaminophen 5-325 mg (oxyCODONE-Acetaminophen 5-325 mg) 1 Each Tablet 1-2 TAB PO Q6H PRN PRN For Pain General Time Seen by MD: 20:23 Chief Complaint Multip medical complaints Hx Obtained From: Patient Arrived By: Walk-in Sudden in Onset?: Yes (Today) Symptom Duration: Since onset Past Medical History Past Medical History Notes: Urologist: Dr. Okeefe Past Medical History Depression with self-cutting Arm nerve damage Pyelonephritis Kidney stones Suspected right-sided ureteropelvic junction obstruction s/p stenting on 05/12/2016 Chronic flank pain related to kidney stones and prior stenting Chlamydia - asymptomatic History of IVDA Past Surgical History Right sided double-J stent placement removed 06/2016 Reports: Cholecystectomy Family History Grandmother: heart disease and prior [place] Mother: Colon cancer no family history of blood clots Smoking History Current Every Day Smoker Social History Former IVDA, not currently using. Alcohol Use: Denies alcohol use Drug Use: Denies drug use Other Social History: Good social support, Local resident Ambulatory Status Independent Review of Systems Full Review of Systems Constitutional: Reports: Chills, Fever (subjective ) GI: Reports: Nausea, Vomiting, Denies: Abdominal pain, Constipation, Diarrhea Female: Denies: Dysuria, Hematuria Musculoskeletal: Reports: Back pain Neurologic: Reports: Headache Complete sys rev & neg: except as marked. Physical Exam Vital Signs Vital Signs Date Time Temp Pulse Resp B/P Pulse Ox O2 Delivery O2 Flow Rate FiO2 04/04/17 00:21 88 20 134/60 98 Room Air 04/03/17 23:00 37.3 78 14 112/66 96 Room Air 04/03/17 18:58 37.0 99 20 117/78 100 Room Air Initial VS: Reviewed, Vital signs normal Skin: Warm, Dry, No cyanosis Neurologic: Alert, Oriented, Nonfocal Psychiatric: Mood/affect normal, Behavior normal, Normal thought content General/Constitutional: Awake, Alert Head / Eyes: Atraumatic, Normocephalic, EOMI ENT: Atraumatic, Airway patent, Mucous membranes moist, Pharynx NL Neck: Atraumatic, Supple, Full range of motion Mild cervical adenopathy Respiratory / Chest: Atraumatic, Breath sounds NL, Breath sounds = bilat, No respiratory distress Cardiovascular: Heart rate NL, Regular rhythm, Heart sounds NL, No gallop, No murmurs, No rubs Abdomen: Atraumatic, Soft, BS normoactive Mild diffuse tenderness Back: Full range of motion Bilateral and equivocal CVA tenderness Interpretation & Diagnostics Lab Results Interpretation Result Diagram: 04/03/17205704/03/172057 Test 04/03/17 20:58 04/03/17 21:40 White Blood Count 11.3th/mm3 (3.8-10.1) Red Blood Count 4.18mil/mm3 (3.90-5.20) Hemoglobin 12.2g/dL (12.0-15.6) Hematocrit 35.7% (35.0-46.0) Mean Corpuscular Volume 85.4fL (81-100) Mean Corpuscular Hemoglobin 29.2pg (27.0-35.0) Mean Corpuscular Hemoglobin Concent 34.2% (32.0-37.0) Red Cell Distribution Width 13.7% (12.3-15.4) Platelet Count 274bil/L (150-400) Neutrophils (%) (Auto) 86.2% (40-74) Lymphocytes (%) (Auto) 8.1% (14-46) Monocytes (%) (Auto) 4.8% (4-12) Eosinophils (%) (Auto) 0.5% (0-5) Basophils (%) (Auto) 0.2% (0-3) Hold Urine Received (Received) Sodium Level 139mEq/L (134-144) Potassium Level 4.0mEq/L (3.5-5.2) Chloride Level 101mEq/L (97-108) Carbon Dioxide Level 23mmol/L (18-29) Blood Urea Nitrogen 3mg/dL (6-20) Creatinine 0.44mg/dL (0.57-1.00) Estimat Glomerular Filtration Rate 244mL/min (>59) Glucose Level 101mg/dL (60-99) Calcium Level 9.3mg/dL (8.5-10.1) Total Bilirubin 0.6mg/dL (0.0-1.2) Aspartate Amino Transf (AST/SGOT) 56U/L (0-50) Alanine Aminotransferase (ALT/SGPT) 58U/L (0-32) Alkaline Phosphatase 175U/L (25-150) Total Protein 7.3g/dL (6.4-8.4) Albumin 4.2g/dL (3.4-5.0) Lipase 18U/L (13-60) Hold Dobbs Top Tube Received (Received) Urine Color Yellow (YELLOW) Urine Appearance Hazy (CLEAR,HAZY) Urine pH 7.5 (5.0-8.0) Urine Specific [place] 1.005 (1.003-1.035) Urine Protein Negativemg/dL (NEG,TRACE) Urine Glucose (UA) Negativemg/dL (NEGATIVE) Urine Ketones Negativemg/dL (NEGATIVE) Urine Occult Blood Negative (NEGATIVE) Urine Nitrite Negative (NEGATIVE) Urine Bilirubin Negative (NEGATIVE) Urine Urobilinogen Normalmg/dL (NORMAL) Urine Leukocyte Esterase Negative (NEGATIVE) Urine RBC 0-2/hpf (0-2) Urine WBC 0-5/hpf (0-5) Urine Epithelial Cells Moderate/hpf (NONE-MOD) Urine Crystals None seen (NONE SEEN) Urine Bacteria Moderate/hpf (NONE-FEW) Urine Hyaline Casts None/lpf (NONE) Urine Granular Casts None seen (NONE SEEN) Urine Waxy Casts None seen (NONE SEEN) Urine Red Blood Cell Casts None seen (NONE SEEN) Urine White Blood Cell Casts None seen (NONE SEEN) Urine Mucus None seen (None Seen) Urine Trichomonas None seen (NONE SEEN) Urine Yeast None (NONE SEEN) Urinalysis Comment None Urine Culture Reflexed Indicated CT Abd / Pelvis Interpretation CONCLUSION: normal appendix. Moderately severe right hydronephrosis with slight thickening of the wall of the proximal right uterer; these findings could be due to recent passage of a right uretal stone with residual spasm at the UPJ, or possibly due to ureteritis. No obstructing ureteral stone or findings of pyelonephritis identified. Radiologist: Wily Lovelace M.D. Study type: Abdominal CT IV contrast Interpretation / Wet Read by: Interpret - Radiologist Re-Eval/Medical Decision Time of Eval: 21:50 Re-Evaluation/Progress Note: Patient reports to nurse that she has been injecting heroin for the last 3 days, last use at noon today, and that she has been re-using her dirty needles. Time of Eval: 23:55 Re-Evaluation/Progress Note: Rechecked patient. Discussed imaging results. Discussed importance of avoiding IVDU. Discussed plan for discharge. Patient understands and agrees with plan. All questions addressed at this time. Counseled Regarding: Diagnosis, Lab results, Need for follow-up, When/why to return to ED Discharge & Departure Primary Impression: Abdominal pain Abdominal location: generalized Qualified Code: R10.84 - Generalized abdominal pain Additional Impressions: Nausea and vomiting Vomiting type: unspecified Vomiting Intractability: non-intractable Qualified Code: R11.2 - Nausea with vomiting, unspecified Substance abuse Disposition: Home Discharge Condition All VS Reviewed: Yes Condition: Stable Patient Instructions: Acute Nausea and Vomiting (ED) Additional Instructions: Emergency department evaluation including review, examination labs reviewed past records and CT of abdomen and pelvis. No serious cause for abdominal pain and nausea is identified today. May use ondansetron as needed for nausea and vomiting, do not use injection drugs. Follow-up with primary care this week, return to emergency department for increasing pain fevers or uncontrolled vomiting. Referrals: Adalgisa Anaya MD (PCP) Jaylen Attestation Portions of this note were transcribed by Francisco Paredes. I, Dr. Ngo personally performed the history, physical exam and medical decision-making; I reviewed and confirmed the accuracy of the information in the transcribed note. Signed by: Jaylen Denis, 04/03/17 copies to: Adalgisa Anaya MD, Donald L MD Apr 03, 2017 20:25 FRANCISCO PAREDES Apr 03, 2017 20:47
[2017-04-03 21:07] LABS: BASOPHILS % (AUTO) 0.2 % (0-3); EOSINOPHILS % (AUTO) 0.5 % (0-5); MONOCYTES % (AUTO) 4.8 % (4-12); Mean Corpuscular Hemoglobin 29.2 pg (27.0-35.0); Mean Corpuscular Volume 85.4 fL (81-100); NEUTROPHILS % (AUTO) 86.2 % (40-74); Platelet Count 274 bil/L (150-400)
[2017-04-03] MEDS ORDERED: 0.9% Sodium Chloride 1,000 ML IV ONE (21:35)
[2017-04-03 22:01] LABS: APPEARANCE,URINE HAZY (CLEAR,HAZY); COLOR,URINE YELLOW (YELLOW); OCCULT BLOOD,URINE NEGATIVE (NEGATIVE); PH,URINE 7.5 (5.0-8.0); UROBILINOGEN,URINE NORMAL (NORMAL)
[2017-04-03 23:00] VITALS: BP 112/66; PULSE 78; RESP 14; O2SAT 96
[2017-04-04] MEDS ORDERED: _Ondansetron ODT 4 mg Tablet PO PRN
[2017-04-04 00:21] VITALS: BP 134/60; PULSE 88; RESP 20; O2SAT 98
--- NOTE | 2017-04-04 08:31 | DRSVH ---
PROCEDURE: CT ABDOMEN AND PELVIS WITH CONTRAST ([id number]) INDICATIONS: abd pain and fever TECHNIQUE: After the administration of intravenous contrast, 5 mm thick sections acquired from the diaphragm to the symphysis. 5 mm coronal and sagittal reformats were acquired. For radiation dose reduction, the following was used: automated exposure control, adjustment of mA and/or kV according to patient siz e. COMPARISON: [facility], CT, CT ABD PELVIS W CON, 05/14/2016, 1:46. [facility], CT, CT ABD PELVIS W CON, 10/05/2016, 1:52. [facility], CT, CT KUB, 03/16/2017, 14:27. FINDINGS: Image quality: Excellent. ABDOMEN: Lung bases: Lung bases are clear. Heart size is normal. Solid organs: Liver and spleen are normal in size and enhancement. Gallbladder is absent. Biliary system is non dilated. Pancreas enhances normally. No adrenal nodules. Kidneys demonstrate normal size and enhancement. Moderate to severe right sided hydronephrosis is noted. No left-sided hydroneph rosis. No renal stones identified. Peritoneum and bowel: Bowel loops demonstrate normal wall thickness and caliber. No free fluid or a ir. The appendix is normal. Nodes and vessels: No retroperitoneal or mesenteric adenopathy by size criteria. Aorta and inferior vena cava are normal in size. Miscellaneous: No ventral hernias. PELVIS: Genitourinary: Bladder wall thickness is normal. Uterus and adnexa are within normal limits. Miscellaneous: No inguinal hernias or adenopathy. Bones: No suspicious bony lesions. No vertebral body compression fractures. IMPRESSION: Moderate to severe right-sided hydronephrosis which could be due to recently passed stone or benign versus malignant ureteral stricture. Recommend urology consultation. Dictated by: Shakila Reinoso MD, PhD on 04/04/2017 at 8:24 Approved by: Shakila Reinoso MD, PhD on 04/04/2017 at 8:30
== END 2017-04-04 00:22 | disposition home or self-care (01) ==
LOC: SED 18:47
DX: R10.84 Generalized abdominal pain (principal); R11.2 Nausea with vomiting, unspecified; F19.10 Other psychoactive substance abuse, uncomplicated; F17.200 Nicotine dependence, unspecified, uncomplicated; Z88.0 Allergy status to penicillin
CPT/HCPCS: 36415; 74177; 80053; 81000; 81025; 83690; 85025; 87086; 87088; 96360; 99285; J7030; Q9967

== ENCOUNTER 2017-04-16 11:48 | Emergency (ER) | payer OTHER ==
[~2017-04-16] VITALS: Ht 162.6 cm; Wt 79.5 kg
[2017-04-16 11:48] VITALS: BP 113/79; PULSE 109; RESP 16; O2SAT 99
--- NOTE | 2017-04-16 13:02 | ED.REPORT ---
HPI-Overdose/Alcohol Toxicity Date of Service Apr 16, 2017 ED Provider: Kb Mcintosh MD Patient is a 26 year old female with a history of IV drug use who presents to the ED complaining of numbness in her face. She reports that she used meth for the first time last week. The patient states that she has felt "sick" for the past couple of weeks and complains of nausea. She states that she does have suicidal ideations sometimes and is not sure if she would actually act on them. Patient reports that she uses a 1/2g-1g of heroin for the past 6 weeks and she was clean for 8 months before that. She would like to get off heroin again. Patient denies fever or problem walking. The patient states that she last used heroin 12 hours ago. Nursing Notes Stated Complaint: FACE/BODY NUMB Chief Complaint: General Complaint Nursing Notes Reviewed: Yes Allergies: Coded Allergies: Penicillins (Verified Allergy, Unknown, hives, 04/16/17) amoxicillin (Verified Allergy, Unknown, rash, 04/16/17) Scheduled Cephalexin (Keflex) 500 Mg Capsule 500 MG PO QID Ciprofloxacin (Cipro) 500 Mg Tablet 500 MG PO BID Ciprofloxacin (Ciprofloxacin) 500 Mg Tablet 500 MG PO BID Etonogestrel (Nexplanon) 68 Mg Implant 68 MG SQ DAILY Gabapentin (Gabapentin) 600 Mg Tablet 600 MG PO TID Gabapentin (Gabapentin) 600 Mg Tablet 600 MG PO TID Sulfamethoxazole/Trimeth 400-80 mg (Bactrim) 1 Each Tablet 1 TABLET PO BID Tamsulosin (Flomax) 0.4 Mg Capsule 0.4 MG PO DAILY Venlafaxine ER (Effexor XR) 37.5 Mg Capsule 37.5 MG PO DAILY Venlafaxine ER (Venlafaxine ER) 37.5 Mg Tab.er.24 37.5 MG PO TID Scheduled PRN Hydrocodone-Acetaminophen 5-300 mg (Hydrocodone-Acetaminophen 5-300 mg) 1 Each Tablet 1 TABLET PO Q4H PRN PRN For Pain Hydrocodone-Acetaminophen 5-325 mg (Hydrocodone-Acetaminophen 5-325 mg) 1 Each Tablet 1-2 TABLET PO Q4H PRN PRN For Pain Hydrocodone-Acetaminophen 5-325 mg (Hydrocodone-Acetaminophen 5-325 mg) 1 Each Tablet 1 TABLET PO Q4H PRN PRN For Pain Ibuprofen (Ibuprofen) 600 Mg Tablet 600 MG PO QID PRN PRN For Pain Naproxen (Naproxen) 500 Mg Tab 500 MG PO BID PRN PRN For Pain Ondansetron ODT (Zofran ODT) 4 Mg Tablet 4 MG PO Q4H PRN PRN For Nausea Phenazopyridine (Phenazopyridine) 200 Mg Tablet 200 MG PO TID PRN PRN dysuria Phenazopyridine (Pyridium) 200 Mg Tablet 200 MG PO TID PRN PRN For Pain oxyCODONE-Acetaminophen 5-325 mg (oxyCODONE-Acetaminophen 5-325 mg) 1 Each Tablet 1-2 TAB PO Q6H PRN PRN For Pain oxyCODONE-Acetaminophen 5-325 mg (oxyCODONE-Acetaminophen 5-325 mg) 1 Each Tablet 1-2 TAB PO Q6H PRN PRN For Pain General Time Seen by Provider: 13:05 Chief Complaint Other (facial numbness) Hx Obtained From: Patient Arrived By: Walk-in Onset Occurred: 1 week ago Severity: Current: No pain currently Similar Sx Previous: No Past Medical History Past Medical History Notes: Urologist: Dr. Okeefe Past Medical History Depression with self-cutting Arm nerve damage Pyelonephritis Kidney stones Suspected right-sided ureteropelvic junction obstruction s/p stenting on 05/12/2016 Chronic flank pain related to kidney stones and prior stenting Chlamydia - asymptomatic History of IVDA Past Surgical History Right sided double-J stent placement removed 06/2016 Reports: Cholecystectomy Family History Grandmother: heart disease and prior [place] Mother: Colon cancer no family history of blood clots Smoking History Current Every Day Smoker Social History Alcohol Use: Denies alcohol use Drug Use: IV drugs, Meth Other Social History: Local resident, Homeless Ambulatory Status Independent Review of Systems Constitutional: Denies: Chills, Fever Respiratory: Denies: Non-productive cough, Shortness of breath GI: Reports: Nausea Skin: Denies Rash Neurologic: Reports: Numbness, Denies: Problem walking, Weakness Psychiatric: Reports: Suicidal ideation Complete sys rev & neg: except as marked. Physical Exam Initial Vital Signs Vital Signs (First) Date Time Temp Pulse Resp B/P Pulse Ox O2 Delivery O2 Flow Rate FiO2 04/16/17 11:48 36.3 109 16 113/79 99 Room Air Initial VS: Reviewed General/Constitutional: Awake, Alert Respiratory / Chest: Atraumatic, Breath sounds NL, Breath sounds = bilat, No respiratory distress Cardiovascular: Heart rate NL, Regular rhythm, Heart sounds NL Abdomen: Atraumatic, Soft, Non-tender Neurologic: Oriented X3, Speech NL, No motor deficits, No sensory deficits, CN II - XII intact, Cerebellar NL, Memory NL Psychiatric: Affect NL, Mood NL, Not suicidal, Not homicidal Head / Eyes: Atraumatic, Normocephalic, PERRL, EOMI Skin: Warm, Dry Upper Extremity / MS: Neurologic intact, Vascular intact Lower Extremity / Pelvis / MS: Neurologic intact, Vascular intact Interpretation & Diagnostics Lab Results Interpretation Result Diagram: 04/16/17 1456 Test 04/16/17 14:56 White Blood Count 6.9th/mm3 (3.8-10.1) Red Blood Count 4.37mil/mm3 (3.90-5.20) Hemoglobin 12.4g/dL (12.0-15.6) Hematocrit 36.5% (35.0-46.0) Mean Corpuscular Volume 83.5fL (81-100) Mean Corpuscular Hemoglobin 28.4pg (27.0-35.0) Mean Corpuscular Hemoglobin Concent 34.0% (32.0-37.0) Red Cell Distribution Width 13.8% (12.3-15.4) Platelet Count 338bil/L (150-400) Neutrophils (%) (Auto) 63.6% (40-74) Lymphocytes (%) (Auto) 26.3% (14-46) Monocytes (%) (Auto) 7.5% (4-12) Eosinophils (%) (Auto) 1.9% (0-5) Basophils (%) (Auto) 0.6% (0-3) Hold Dobbs Top Tube Received (Received) Re-Eval/Medical Decision Med Decision/Clinical Course This patient's unusual constellation of system seems entirely consistent with methamphetamine and opiate abuse. We discussed outpatient treatment and she will be going to [facility] today I did give her a 5 day prescription for Suboxone with explicit instructions as to how to use this medication. I told her to call [facility] Tuesday morning for an appointment on with me the Suboxone dose is 16 mg daily. Paper prescription is handed to the patient by myself. Re-Evaluation/Progress : Time of Eval: 14:48 Re-Evaluation/Progress Note: Crisis is reviewing the patient's case Counseled Regarding: Diagnosis, Lab results, Need for follow-up, When/why to return to ED Discharge & Departure Impression: Primary Impression: Heroin abuse Additional Impression: Methamphetamine use )( Condition at Discharge: No danger to self, No danger to others, Clear for drug rehab Disposition: Home Discharge Condition All VS Reviewed: Yes Condition: Stable Patient Instructions: Narcotic Abuse (ED) Additional Instructions: Call [facility] Tuesday for an appointment on with me. Take 16 mg of Suboxone daily starting 24 hours after your last opiate use. You will likely be accepted at [facility] later today, called back to the emergency department for specific time. Referrals: Adalgisa Anaya MD (PCP) Jaylen Attestation Portions of this note were transcribed by Afshan Newberry. I, Dr. Mcintosh personally performed the history, physical exam and medical decision-making; I reviewed and confirmed the accuracy of the information in the transcribed note. Signed by: Jaylen Eli, 04/16/17 copies to: Adalgisa Anaya MD, Kirk H MD Apr 16, 2017 13:02 My Newberry Apr 16, 2017 13:11
[2017-04-16 14:17] VITALS: BP 107/66; PULSE 89; RESP 16; O2SAT 100
[2017-04-16 15:12] LABS: BASOPHILS % (AUTO) 0.6 % (0-3); EOSINOPHILS % (AUTO) 1.9 % (0-5); MONOCYTES % (AUTO) 7.5 % (4-12); Mean Corpuscular Hemoglobin 28.4 pg (27.0-35.0); Mean Corpuscular Volume 83.5 fL (81-100); NEUTROPHILS % (AUTO) 63.6 % (40-74); Platelet Count 338 bil/L (150-400)
[2017-04-16 15:34] VITALS: BP 107/66; PULSE 89; RESP 16; O2SAT 100
== END 2017-04-16 15:35 | disposition home or self-care (01) ==
LOC: SED 11:48
DX: F11.10 Opioid abuse, uncomplicated (principal); F15.10 Other stimulant abuse, uncomplicated; R11.0 Nausea; R45.851 Suicidal ideations; F32.9 Major depressive disorder, single episode, unspecified; F17.200 Nicotine dependence, unspecified, uncomplicated; Z87.442 Personal history of urinary calculi; Z91.5 Personal history of self-harm; Z90.49 Acquired absence of other specified parts of digestive tract; Z93.4 Other artificial openings of gastrointestinal tract status; Z59.0 Homelessness; Z88.0 Allergy status to penicillin

== ENCOUNTER 2017-04-18 20:09 | Emergency (ER) | payer OTHER ==
[~2017-04-18] VITALS: Ht 162.6 cm; Wt 81.8 kg
[2017-04-18 20:33] VITALS: BP 129/82; PULSE 103; RESP 18; O2SAT 94
--- NOTE | 2017-04-18 22:17 | ED.REPORT ---
HPI-General Illness Date of Service Apr 18, 2017 ED Provider: Dr. Sanchez Pt is a 26 year old female with a hx of IV drug abuse presenting to the ED complaining of bilateral foot pain and LE swelling. Associated symptoms include LE numbness and weakness. Denies fever, chills, nausea, vomiting, SOB or wheezing. Pt has a bed at [facility]. She reports that she last did meth 4 days ago. Nursing Notes Stated Complaint: BILAT LEG NUMBNESS AND PAIN Chief Complaint: General Complaint Nursing Notes Reviewed: Yes Allergies: Coded Allergies: Penicillins (Verified Allergy, Unknown, hives, 04/16/17) amoxicillin (Verified Allergy, Unknown, rash, 04/16/17) Scheduled Cephalexin (Keflex) 500 Mg Capsule 500 MG PO QID Ciprofloxacin (Cipro) 500 Mg Tablet 500 MG PO BID Ciprofloxacin (Ciprofloxacin) 500 Mg Tablet 500 MG PO BID Etonogestrel (Nexplanon) 68 Mg Implant 68 MG SQ DAILY Gabapentin (Gabapentin) 600 Mg Tablet 600 MG PO TID Gabapentin (Gabapentin) 600 Mg Tablet 600 MG PO TID Sulfamethoxazole/Trimeth 400-80 mg (Bactrim) 1 Each Tablet 1 TABLET PO BID Tamsulosin (Flomax) 0.4 Mg Capsule 0.4 MG PO DAILY Venlafaxine ER (Effexor XR) 37.5 Mg Capsule 37.5 MG PO DAILY Venlafaxine ER (Venlafaxine ER) 37.5 Mg Tab.er.24 37.5 MG PO TID Venlafaxine ER (Effexor XR) 37.5 Mg Capsule 37.5 MG PO TID Scheduled PRN Clonidine (Clonidine) 0.2 Mg Tablet 0.2 MG PO BID PRN PRN Withdrawal Symptoms Hydrocodone-Acetaminophen 5-300 mg (Hydrocodone-Acetaminophen 5-300 mg) 1 Each Tablet 1 TABLET PO Q4H PRN PRN For Pain Hydrocodone-Acetaminophen 5-325 mg (Hydrocodone-Acetaminophen 5-325 mg) 1 Each Tablet 1-2 TABLET PO Q4H PRN PRN For Pain Hydrocodone-Acetaminophen 5-325 mg (Hydrocodone-Acetaminophen 5-325 mg) 1 Each Tablet 1 TABLET PO Q4H PRN PRN For Pain Ibuprofen (Ibuprofen) 600 Mg Tablet 600 MG PO QID PRN PRN For Pain Naproxen (Naproxen) 500 Mg Tab 500 MG PO BID PRN PRN For Pain Ondansetron ODT (Zofran ODT) 4 Mg Tablet 4 MG PO Q4H PRN PRN For Nausea Ondansetron ODT (Ondansetron ODT) 8 Mg Tab.rapdis 8 MG PO QID PRN PRN For Nausea Phenazopyridine (Phenazopyridine) 200 Mg Tablet 200 MG PO TID PRN PRN dysuria Phenazopyridine (Pyridium) 200 Mg Tablet 200 MG PO TID PRN PRN For Pain oxyCODONE-Acetaminophen 5-325 mg (oxyCODONE-Acetaminophen 5-325 mg) 1 Each Tablet 1-2 TAB PO Q6H PRN PRN For Pain oxyCODONE-Acetaminophen 5-325 mg (oxyCODONE-Acetaminophen 5-325 mg) 1 Each Tablet 1-2 TAB PO Q6H PRN PRN For Pain General Time Seen by MD: 22:16 Chief Complaint Other (Bilateral foot pain) Hx Obtained From: Patient Arrived By: Walk-in Sudden in Onset?: No Onset Occurred: Onset unknown Symptom Duration: Since onset Location: : Foot left: Foot right: Leg left: Leg right Quality: Painful Severity: Current: Severe Severity: Maximum: Severe Recent Healthcare: No recent hospitalization, Recent doctor visit Similar Sx Previous: No Past Medical History Past Medical History Notes: Urologist: Dr. Okeefe Past Medical History Depression with self-cutting Arm nerve damage Pyelonephritis Kidney stones Suspected right-sided ureteropelvic junction obstruction s/p stenting on 05/12/2016 Chronic flank pain related to kidney stones and prior stenting Chlamydia - asymptomatic History of IVDA Past Surgical History Right sided double-J stent placement removed 06/2016 Reports: Cholecystectomy Family History Grandmother: heart disease and prior [place] Mother: Colon cancer no family history of blood clots Smoking History Current Every Day Smoker Social History Alcohol Use: Denies alcohol use Drug Use: IV drugs, Meth Other Social History: Local resident, Homeless Ambulatory Status Independent Review of Systems Full Review of Systems Constitutional: Denies: Chills, Fever Respiratory: Denies: Shortness of breath, Wheezing GI: Denies: Nausea, Vomiting Musculoskeletal: Reports: Extremity pain, Extremity swelling, Joint pain, Joint swelling Neurologic: Reports: Numbness, Weakness Complete sys rev & neg: except as marked. Physical Exam Vital Signs Vital Signs Date Time Temp Pulse Resp B/P Pulse Ox O2 Delivery O2 Flow Rate FiO2 9/5/17 02:56 37.3 84 18 135/82 99 Room Air 04/19/17 02:45 84 18 135/82 99 Room Air 04/19/17 00:36 71 14 99 Room Air 04/18/17 20:33 37.3 103 18 129/82 94 Room Air Initial VS: Reviewed Head / Eyes: Atraumatic, Normocephalic, PERRL ENT: Mucous membranes moist, Conjunctiva normal, No scleral icterus Neck: Supple, Non-tender, Full range of motion Respiratory: Breath sounds normal, Clear to auscultation, No respiratory distress Cardiovascular: Regular rate & rhythm, Heart sounds normal, Intact distal pulses Abdomen / GI: Soft, Non-tender, No guarding, No rebound, No distention Neurologic: Alert, Oriented, Nonfocal Psychiatric: Mood/affect normal, Behavior normal, Normal thought content General/Constitutional: Awake, Alert Behavior: Positive: Anxious Signs of IV drug use Lower Extremity / Pelvis / MS: No deformity, Neurologic intact, Vascular intact , No edema Feet swollen Skin: Atraumatic, Color NL Track miranda all along the arms, multiple excoriations on face. Blisters on the feet. Interpretation & Diagnostics Lab Results Interpretation Result Diagram: 04/18/17 2257 04/18/17 2257 Test 04/18/17 22:57 04/18/17 23:09 04/18/17 23:36 White Blood Count 10.1th/mm3 (3.8-10.1) Red Blood Count 3.93mil/mm3 (3.90-5.20) Hemoglobin 11.3g/dL (12.0-15.6) Hematocrit 32.5% (35.0-46.0) Mean Corpuscular Volume 82.7fL (81-100) Mean Corpuscular Hemoglobin 28.8pg (27.0-35.0) Mean Corpuscular Hemoglobin Concent 34.8% (32.0-37.0) Red Cell Distribution Width 13.2% (12.3-15.4) Platelet Count 275bil/L (150-400) Neutrophils (%) (Auto) 75.4% (40-74) Lymphocytes (%) (Auto) 16.2% (14-46) Monocytes (%) (Auto) 6.1% (4-12) Eosinophils (%) (Auto) 1.7% (0-5) Basophils (%) (Auto) 0.4% (0-3) Sodium Level 138mEq/L (134-144) Potassium Level 3.4mEq/L (3.5-5.2) Chloride Level 100mEq/L (97-108) Carbon Dioxide Level 24mmol/L (18-29) Blood Urea Nitrogen 5mg/dL (6-20) Creatinine 0.52mg/dL (0.57-1.00) Estimat Glomerular Filtration Rate 201mL/min (>59) Glucose Level 101mg/dL (60-99) Calcium Level 9.0mg/dL (8.5-10.1) Total Bilirubin 0.7mg/dL (0.0-1.2) Aspartate Amino Transf (AST/SGOT) 70U/L (0-50) Alanine Aminotransferase (ALT/SGPT) 42U/L (0-32) Alkaline Phosphatase 151U/L (25-150) Total Protein 7.1g/dL (6.4-8.4) Albumin 3.9g/dL (3.4-5.0) Thyroid Stimulating Hormone (TSH) 0.672uIU/mL (0.450-4.500) Alcohols < 10mg/dL (0-10) Hold Dobbs Top Tube Received (Received) Hold Urine Received (Received) Re-Eval/Medical Decision Med Decision/Clinical Course 26-year-old methamphetamine abuser presents with request for clearance for placement in a crisis. Clinically clear for placement. Anxious and reactive and provided with a milligram of Ativan for her methamphetamine related symptoms. Discharged With Ativan when necessary, Zofran, and ongoing effexor. Time of Eval: 23:39 Patient Status: Condition improved Re-Evaluation/Progress Note: Discussed plan for discharge. Pt understands and agrees. Counseled Regarding: Diagnosis, Lab results, Need for follow-up, When/why to return to ED Discharge & Departure Primary Impression: Methamphetamine use Additional Impressions: Heroin abuse Depression Disposition: Home Discharge Condition All VS Reviewed: Yes Condition: Improved Patient Instructions: Methamphetamine Abuse (ED), Narcotic Abuse (ED) Additional Instructions: Take meds as directed by staff. Good luck in your quest for sobriety and recovery. Referrals: Adalgisa Anaya MD (PCP) Scribe Attestation Portions of this note were transcribed by Jojo Anderson. I, Dr. Sanchez personally performed the history, physical exam and medical decision-making; I reviewed and confirmed the accuracy of the information in the transcribed note. Signed by: Jaylen Rene, 04/18/2017. copies to: Adalgisa Anaya MD, Christopher W MD Apr 18, 2017 22:16 JOJO ANDERSON Apr 18, 2017 22:23
[2017-04-18 23:05] LABS: BASOPHILS % (AUTO) 0.4 % (0-3); EOSINOPHILS % (AUTO) 1.7 % (0-5); MONOCYTES % (AUTO) 6.1 % (4-12); Mean Corpuscular Hemoglobin 28.8 pg (27.0-35.0); Mean Corpuscular Volume 82.7 fL (81-100); NEUTROPHILS % (AUTO) 75.4 % (40-74); Platelet Count 275 bil/L (150-400)
[2017-04-18] MEDS ORDERED: LORazepam 2 mg Tablet PO ONE (23:05)
[2017-04-19] MEDS ORDERED: _Ondansetron ODT 4 mg Tablet PO PRN (00:35)
[2017-04-19] MEDS ORDERED: _LORazepam 2 MG Tablet PO PRN (00:35)
[2017-04-19 00:36] VITALS: PULSE 71; RESP 14; O2SAT 99
[2017-04-19] MEDS ORDERED: VENL37.53 PO (00:39)
[2017-04-19] MEDS ORDERED: ONDA8TAB10 PO (00:39)
[2017-04-19] MEDS ORDERED: CLON0.2T PO (00:39)
[2017-04-19 02:45] VITALS: BP 135/82; PULSE 84; RESP 18; O2SAT 99
[2017-04-19 02:56] VITALS: BP 135/82; PULSE 84; RESP 18; O2SAT 99
== END 2017-04-19 02:58 | disposition home or self-care (01) ==
LOC: SED 20:09
DX: F15.10 Other stimulant abuse, uncomplicated (principal); F11.10 Opioid abuse, uncomplicated; F32.9 Major depressive disorder, single episode, unspecified; F17.200 Nicotine dependence, unspecified, uncomplicated; Z87.442 Personal history of urinary calculi; Z59.0 Homelessness; Z95.5 Presence of coronary angioplasty implant and graft; Z88.0 Allergy status to penicillin
CPT/HCPCS: 36415; 80053; 81002; 84443; 85025; 90791; 99284; G0480

== ENCOUNTER 2017-04-19 04:03 | Emergency (ER) | payer OTHER ==
[~2017-04-19] VITALS: Ht 170.2 cm; Wt 93.2 kg
[~2017-04-19 04:03] MED LIST changes: +CLON0.2T PO; +ONDA8TAB10 PO
[2017-04-19 04:05] VITALS: BP 78/46; PULSE 97; RESP 16; O2SAT 97
[2017-04-19 06:39] VITALS: RESP 17
[2017-04-19 07:31] VITALS: BP 106/67; PULSE 68
--- NOTE | 2017-04-19 09:12 | ED.REPORT ---
HPI-General Illness Date of Service Apr 19, 2017 ED Provider: Rickie Mejia MD Patient is a 26-year-old female with a hx of polysubstance abuse presenting to the ED from crisis respite after initially being medically cleared last night. Upon her arrival there, she was thought to be too "sleepy" and sent back here for further evaluation. She states that she is fatigued because she was given a benzo to help calm her down. She denies chest pain, SOB, fever, chills, headache , vision changes, vomiting, rash, itching, hematuria, constipation, diarrhea, sore throat, back pain, or any other symptoms. She denies using heroin after leaving last night. Nursing Notes Stated Complaint: SENT BACK BY CRISIS CENTER Chief Complaint: General Complaint Nursing Notes Reviewed: Yes Allergies: Coded Allergies: Penicillins (Verified Allergy, Unknown, hives, 04/16/17) amoxicillin (Verified Allergy, Unknown, rash, 04/16/17) Scheduled Cephalexin (Keflex) 500 Mg Capsule 500 MG PO QID Ciprofloxacin (Cipro) 500 Mg Tablet 500 MG PO BID Ciprofloxacin (Ciprofloxacin) 500 Mg Tablet 500 MG PO BID Etonogestrel (Nexplanon) 68 Mg Implant 68 MG SQ DAILY Gabapentin (Gabapentin) 600 Mg Tablet 600 MG PO TID Gabapentin (Gabapentin) 600 Mg Tablet 600 MG PO TID Sulfamethoxazole/Trimeth 400-80 mg (Bactrim) 1 Each Tablet 1 TABLET PO BID Tamsulosin (Flomax) 0.4 Mg Capsule 0.4 MG PO DAILY Venlafaxine ER (Effexor XR) 37.5 Mg Capsule 37.5 MG PO DAILY Venlafaxine ER (Venlafaxine ER) 37.5 Mg Tab.er.24 37.5 MG PO TID Venlafaxine ER (Effexor XR) 37.5 Mg Capsule 37.5 MG PO TID Scheduled PRN Clonidine (Clonidine) 0.2 Mg Tablet 0.2 MG PO BID PRN PRN Withdrawal Symptoms Hydrocodone-Acetaminophen 5-300 mg (Hydrocodone-Acetaminophen 5-300 mg) 1 Each Tablet 1 TABLET PO Q4H PRN PRN For Pain Hydrocodone-Acetaminophen 5-325 mg (Hydrocodone-Acetaminophen 5-325 mg) 1 Each Tablet 1-2 TABLET PO Q4H PRN PRN For Pain Hydrocodone-Acetaminophen 5-325 mg (Hydrocodone-Acetaminophen 5-325 mg) 1 Each Tablet 1 TABLET PO Q4H PRN PRN For Pain Ibuprofen (Ibuprofen) 600 Mg Tablet 600 MG PO QID PRN PRN For Pain Naproxen (Naproxen) 500 Mg Tab 500 MG PO BID PRN PRN For Pain Ondansetron ODT (Zofran ODT) 4 Mg Tablet 4 MG PO Q4H PRN PRN For Nausea Ondansetron ODT (Ondansetron ODT) 8 Mg Tab.rapdis 8 MG PO QID PRN PRN For Nausea Phenazopyridine (Phenazopyridine) 200 Mg Tablet 200 MG PO TID PRN PRN dysuria Phenazopyridine (Pyridium) 200 Mg Tablet 200 MG PO TID PRN PRN For Pain oxyCODONE-Acetaminophen 5-325 mg (oxyCODONE-Acetaminophen 5-325 mg) 1 Each Tablet 1-2 TAB PO Q6H PRN PRN For Pain oxyCODONE-Acetaminophen 5-325 mg (oxyCODONE-Acetaminophen 5-325 mg) 1 Each Tablet 1-2 TAB PO Q6H PRN PRN For Pain General Time Seen by MD: 05:42 Chief Complaint Other (Fatigue ) Hx Obtained From: Patient Arrived By: Walk-in Sudden in Onset?: No Context of Onset: Medication reaction Symptom Duration: Since onset Severity: Current: No pain currently Severity: Maximum: No pain Pertinent Negative: Pt denies other symptoms Context Related History: Reports Drug dependence Recent Healthcare: Recent doctor visit Past Medical History Past Medical History Notes: Urologist: Dr. Okeefe Past Medical History Depression with self-cutting Arm nerve damage Pyelonephritis Kidney stones Suspected right-sided ureteropelvic junction obstruction s/p stenting on 05/12/2016 Chronic flank pain related to kidney stones and prior stenting Chlamydia - asymptomatic History of IVDA Past Surgical History Right sided double-J stent placement removed 06/2016 Reports: Cholecystectomy Family History Grandmother: heart disease and prior [place] Mother: Colon cancer no family history of blood clots Smoking History Current Every Day Smoker Social History Heroin use Alcohol Use: Denies alcohol use Drug Use: IV drugs, Meth Other Social History: Local resident, Homeless Ambulatory Status Independent Review of Systems Full Review of Systems Constitutional: Reports: Fatigue, Denies: Chills, Fever Ears / Nose / Throat: Denies: Sore throat Respiratory: Denies: Shortness of breath Cardiovascular: Denies: Chest pain GI: Denies: Constipation, Diarrhea, Vomiting Female: Denies: Hematuria Musculoskeletal: Denies: Back pain Skin: Denies Rash Allergy / Immune: Denies: Itching Neurologic: Denies: Headache, Vision change Complete sys rev & neg: except as marked. Physical Exam Nursing note and vitals reviewed. Constitutional: Well-developed, well-nourished. Not diaphoretic. Tired but easily roused. Head: Normocephalic and atraumatic. Mouth/Throat: Oropharynx is clear and moist. No oropharyngeal exudate. Eyes: EOM are normal. Pupils are equal, round, and reactive to light. Neck: Supple, no tracheal deviation. Cardiovascular: Normal rate, regular rhythm. Equal and intact distal pulses throughout. Pulmonary/Chest: Effort normal and breath sounds normal. No respiratory distress. Abdominal: Soft. No distension. There is no tenderness, rebound, or guarding. Bowel sounds present. Musculoskeletal: Range of motion grossly intact, moving all extremities. No edema or tenderness appreciated. Neurological: AOx3. Grossly nonfocal exam. Strength and sensation intact and equal to bilateral upper and lower extremities. Skin: Warm and dry, no rashes or pallor appreciated. Track miranda all over. Psychiatric: Appropriate mood and affect. No homicidal or suicidal ideations. No hallucinations. Vital Signs Vital Signs Date Time Temp Pulse Resp B/P Pulse Ox O2 Delivery O2 Flow Rate FiO2 04/19/17 07:31 68 106/67 04/19/17 06:39 17 Room Air 04/19/17 04:05 36.0 97 16 78/46 97 Room Air Initial VS: Reviewed Re-Eval/Medical Decision Med Decision/Clinical Course 26-year-old female presenting to the ED from crisis respite after initially being medically cleared last night. Upon her arrival there, she was thought to be too "sleepy" and sent back here for further evaluation. Initial triage blood pressure prior to my arrival was 78/46, however per report, patient had good peripheral perfusion and aside from being fatigued and had no other symptoms. I repeated the blood pressure upon my arrival and it is now within normal limits without intervention. Patient was medically cleared for crisis and given a benzodiazepine taper to take with her. It is not appear that she has overdosed on this and states that she is fatigued after coming down off of meth and being given Ativan last night in the ED. Reassuring examination, as per above. No suicidal ideations, homicidal ideations. Given that there is a clear etiology for her feeling sleepy, I do not feel that we need to do an extensive workup in the ED including laboratory studies and/or imaging for now, especially in the setting of improved clinical status. Given the above, plan discharge to crisis respite with very careful return precautions, PCP follow- up. Patient agreeable to the plan as stated, no further questions. Time of Eval: 09:11 Re-Evaluation/Progress Note: Discussed plan for discharge to crisis respite. Patient understands and agrees with plan. All questions addressed at this time. Counseled Regarding: Diagnosis, Need for follow-up, When/why to return to ED Discharge & Departure Primary Impression: Fatigue Fatigue type: unspecified Qualified Code: R53.83 - Other fatigue Additional Impressions: Sleepiness Substance abuse Disposition: Home Discharge Condition All VS Reviewed: Yes Condition: Stable Patient Instructions: Medical Clearance for Substance Abuse Treatment (ED) Additional Instructions: Go directly to Crisis respite. Don't take drugs. Return if you develop fevers, chills, vision changes, headache, or any other symptoms of concern to you. Referrals: Adalgisa Aanya MD (PCP) Ishaibe Attestation Portions of this note were transcribed by Francisco Paredes. I, Dr. Mejia personally performed the history, physical exam and medical decision-making; I reviewed and confirmed the accuracy of the information in the transcribed note. Signed by: Jaylen Denis, 04/19/17 copies to: Adalgisa Anaya MD, William B MD Apr 19, 2017 08:15 FRANCISCO PAREDES Apr 19, 2017 09:08
== END 2017-04-19 09:50 | disposition home or self-care (01) ==
LOC: SED 04:03
DX: R53.83 Other fatigue (principal); F11.10 Opioid abuse, uncomplicated; F15.10 Other stimulant abuse, uncomplicated; F17.200 Nicotine dependence, unspecified, uncomplicated; Z59.0 Homelessness; Z90.49 Acquired absence of other specified parts of digestive tract; Z88.0 Allergy status to penicillin

== ENCOUNTER 2017-04-22 00:34 | Emergency (ER) | payer OTHER ==
[~2017-04-22] VITALS: Ht 162.6 cm; Wt 77.3 kg
[2017-04-22 01:06] VITALS: BP 122/75; PULSE 93; RESP 18; O2SAT 100
--- NOTE | 2017-04-22 01:36 | ED.REPORT ---
HPI-General Illness Date of Service Apr 22, 2017 ED Provider: Gennaro Blood MD The pt is a 26 y/o female with a hx of homelessness and polysubstance abuse who presents to the ED complaining of sore throat, onset yesterday. She also complains of a bump on the left side of her neck. She last used meth 7 hours ago and heroin yesterday afternoon. The pt reportedly has a bed reserved at [facility] in [place] for next week. The pt feels unsafe being discharged to the streets and would like to stay in the ED until she can leave for her friend's house in the morning. Nursing Notes Stated Complaint: THROAT SWOLLEN, CHEST PAIN Chief Complaint: General Complaint Nursing Notes Reviewed: Yes Allergies: Coded Allergies: Penicillins (Verified Allergy, Unknown, hives, 04/16/17) amoxicillin (Verified Allergy, Unknown, rash, 04/16/17) Scheduled Cephalexin (Keflex) 500 Mg Capsule 500 MG PO QID Ciprofloxacin (Cipro) 500 Mg Tablet 500 MG PO BID Ciprofloxacin (Ciprofloxacin) 500 Mg Tablet 500 MG PO BID Etonogestrel (Nexplanon) 68 Mg Implant 68 MG SQ DAILY Gabapentin (Gabapentin) 600 Mg Tablet 600 MG PO TID Gabapentin (Gabapentin) 600 Mg Tablet 600 MG PO TID Sulfamethoxazole/Trimeth 400-80 mg (Bactrim) 1 Each Tablet 1 TABLET PO BID Tamsulosin (Flomax) 0.4 Mg Capsule 0.4 MG PO DAILY Venlafaxine ER (Effexor XR) 37.5 Mg Capsule 37.5 MG PO DAILY Venlafaxine ER (Venlafaxine ER) 37.5 Mg Tab.er.24 37.5 MG PO TID Venlafaxine ER (Effexor XR) 37.5 Mg Capsule 37.5 MG PO TID Scheduled PRN Clonidine (Clonidine) 0.2 Mg Tablet 0.2 MG PO BID PRN PRN Withdrawal Symptoms Hydrocodone-Acetaminophen 5-300 mg (Hydrocodone-Acetaminophen 5-300 mg) 1 Each Tablet 1 TABLET PO Q4H PRN PRN For Pain Hydrocodone-Acetaminophen 5-325 mg (Hydrocodone-Acetaminophen 5-325 mg) 1 Each Tablet 1-2 TABLET PO Q4H PRN PRN For Pain Hydrocodone-Acetaminophen 5-325 mg (Hydrocodone-Acetaminophen 5-325 mg) 1 Each Tablet 1 TABLET PO Q4H PRN PRN For Pain Ibuprofen (Ibuprofen) 600 Mg Tablet 600 MG PO QID PRN PRN For Pain Naproxen (Naproxen) 500 Mg Tab 500 MG PO BID PRN PRN For Pain Ondansetron ODT (Zofran ODT) 4 Mg Tablet 4 MG PO Q4H PRN PRN For Nausea Ondansetron ODT (Ondansetron ODT) 8 Mg Tab.rapdis 8 MG PO QID PRN PRN For Nausea Phenazopyridine (Phenazopyridine) 200 Mg Tablet 200 MG PO TID PRN PRN dysuria Phenazopyridine (Pyridium) 200 Mg Tablet 200 MG PO TID PRN PRN For Pain oxyCODONE-Acetaminophen 5-325 mg (oxyCODONE-Acetaminophen 5-325 mg) 1 Each Tablet 1-2 TAB PO Q6H PRN PRN For Pain oxyCODONE-Acetaminophen 5-325 mg (oxyCODONE-Acetaminophen 5-325 mg) 1 Each Tablet 1-2 TAB PO Q6H PRN PRN For Pain General Time Seen by MD: 01:24 Chief Complaint Sore throat Hx Obtained From: Patient Arrived By: Walk-in Sudden in Onset?: Yes Onset Occurred: Yesterday Symptom Duration: Since onset Location: : Neck Quality: Pleuritic Radiation: : Does not radiate Severity: Current: Moderate Severity: Maximum: Moderate Recent Healthcare: Recent doctor visit Past Medical History Past Medical History Notes: Urologist: Dr. Okeefe Past Medical History Depression with self-cutting Arm nerve damage Pyelonephritis Kidney stones Suspected right-sided ureteropelvic junction obstruction s/p stenting on 05/12/2016 Chronic flank pain related to kidney stones and prior stenting Chlamydia - asymptomatic History of IVDA Past Surgical History Right sided double-J stent placement removed 06/2016 Reports: Cholecystectomy Family History Grandmother: heart disease and prior [place] Mother: Colon cancer no family history of blood clots Smoking History Current Every Day Smoker Social History Heroin use Alcohol Use: Denies alcohol use Drug Use: IV drugs, Meth Other Social History: Local resident, Homeless Ambulatory Status Independent Review of Systems Reports: bump on the left side of her neck Full Review of Systems Ears / Nose / Throat: Reports: Sore throat Complete sys rev & neg: except as marked. Physical Exam Vital Signs Vital Signs Date Time Temp Pulse Resp B/P Pulse Ox O2 Delivery O2 Flow Rate FiO2 04/22/17 05:44 36.7 84 14 136/84 98 Room Air 04/22/17 03:12 37.1 88 18 118/68 100 Room Air 04/22/17 01:06 37 93 18 122/75 100 Initial VS: Reviewed, Vital signs normal Head / Eyes: Atraumatic, Normocephalic Neck: Supple, Non-tender, Full range of motion Respiratory: Breath sounds normal, Clear to auscultation, No respiratory distress Cardiovascular: Regular rate & rhythm, Heart sounds normal, Intact distal pulses Abdomen / GI: Soft, Non-tender, No guarding, No rebound, No distention Extremities: Vascular intact, Neuro intact, No swelling, No tenderness Neurologic: Alert, Oriented, Nonfocal General/Constitutional: Awake, Alert, Cooperative Distress / Hydration: Positive: Distress mild ENT: Atraumatic, Airway patent, Pharynx NL, No facial swelling Neck: Atraumatic, Full range of motion Couple of crusted sores on the left side of the neck with swelling. No evidence of abscess. Swollen cervical lymph nodes on the left side of the neck. Left neck cellulitis. Skin: Atraumatic, Color NL, Warm, Dry Re-Eval/Medical Decision Med Decision/Clinical Course 36-year-old female with a history of substance abuse presents with some soreness of her neck. She has a small area of cellulitis without evidence of abscess or deep tissue penetration. She will be treated with topical and oral antibiotics and discharged home. Time of Eval: 01:33 Re-Evaluation/Progress Note: Discussed diagnosis and plan to discharge. Pt understands and agrees with the plan. F/U instruction and RTER warning given. All questions addressed. Counseled Regarding: Diagnosis, Need for follow-up, When/why to return to ED Discharge & Departure Primary Impression: Cellulitis, neck Additional Impression: Substance abuse Disposition: Home Discharge Condition All VS Reviewed: Yes Condition: Stable Patient Instructions: Cellulitis (ED) Additional Instructions: Mupirocin 2% ointment, apply twice daily to the reddened area on her neck. Trimethoprim sulfamethoxazole DS 1 by mouth twice a day, #20 dispensed. Drink plenty of fluids. Continue your efforts to get into inpatient treatment. Referrals: Adalgisa Anaya MD (PCP) Scribe Attestation Portions of this note were transcribed by Noé Ignacio. I,, personally performed the history,physical exam and medical decision-making;I reviewed and confirmed the accuracy of the information in the transcribed note. Signed by Jaylen Cali. 04/22/17 copies to: Adalgisa Anaya MD, Gennaro Pereyra MD Apr 22, 2017 01:36 Noé Ignacio Apr 22, 2017 01:54
[2017-04-22] MEDS ORDERED: Mupirocin 2% 22 Gm Ointment TOPICAL ONE (02:00)
[2017-04-22 03:12] VITALS: BP 118/68; PULSE 88; RESP 18; O2SAT 100
[2017-04-22 05:44] VITALS: BP 136/84; PULSE 84; RESP 14; O2SAT 98
[2017-04-22] MEDS ORDERED: _Trimethoprim-Sulfa 160/800 mg Tablet PO SCH (08:30)
== END 2017-04-22 05:48 | disposition home or self-care (01) ==
LOC: SED 00:34
DX: L03.221 Cellulitis of neck (principal); F15.10 Other stimulant abuse, uncomplicated; F11.10 Opioid abuse, uncomplicated; F32.9 Major depressive disorder, single episode, unspecified; F17.200 Nicotine dependence, unspecified, uncomplicated; Z59.0 Homelessness; Z87.442 Personal history of urinary calculi; Z88.0 Allergy status to penicillin

== ENCOUNTER 2017-05-10 16:32 | Emergency (ER) | payer OTHER ==
[~2017-05-10] VITALS: Ht 162.6 cm; Wt 81.8 kg
[2017-05-10 16:56] VITALS: BP 128/89; PULSE 87; RESP 16; O2SAT 99
--- NOTE | 2017-05-10 19:48 | ED.REPORT ---
HPI-Abd Pain F Under 40 Date of Service May 10, 2017 ED Provider: Sd Interiano MD Pt is a 27 year old female with a history of kidney stones, heroin and methamphetamine abuse who presents to the ED complaining of sharp and stabbing right lower quadrant abdominal pain onset noon today. She states that her pain radiates to her back, and worsens with exertion. She states that her symptoms are similar to when she had kidney stones. Additional symptoms include back pain , mild nausea, skin redness, and diarrhea. Pt denies diaphoresis, fever, chills , dysuria, or hematuria. She last used heroin this morning. Nursing Notes Stated Complaint: RIGHT SIDE ABDOMINAL AND BACK PAIN Chief Complaint: Female Abdominal Pain Nursing Notes Reviewed: Yes (FloQast, Clinverse not reconciled) Allergies: Coded Allergies: Penicillins (Verified Allergy, Unknown, hives, 04/16/17) amoxicillin (Verified Allergy, Unknown, rash, 04/16/17) Scheduled Buprenorphine HCl/Naloxone HCl (Suboxone 8 mg-2 mg Sl Film) 1 Each Film 1 EACH SL BID Cephalexin (Keflex) 500 Mg Capsule 500 MG PO QID Ciprofloxacin (Cipro) 500 Mg Tablet 500 MG PO BID Ciprofloxacin (Ciprofloxacin) 500 Mg Tablet 500 MG PO BID Etonogestrel (Nexplanon) 68 Mg Implant 68 MG SQ DAILY Gabapentin (Gabapentin) 600 Mg Tablet 600 MG PO TID Gabapentin (Gabapentin) 600 Mg Tablet 600 MG PO TID Sulfamethoxazole/Trimeth 400-80 mg (Bactrim) 1 Each Tablet 1 TABLET PO BID Tamsulosin (Flomax) 0.4 Mg Capsule 0.4 MG PO DAILY Tamsulosin (Flomax) 0.4 Mg Capsule 0.4 MG PO DAILY Venlafaxine ER (Effexor XR) 37.5 Mg Capsule 37.5 MG PO DAILY Venlafaxine ER (Venlafaxine ER) 37.5 Mg Tab.er.24 37.5 MG PO TID Venlafaxine ER (Effexor XR) 37.5 Mg Capsule 37.5 MG PO TID Scheduled PRN Clonidine (Clonidine) 0.2 Mg Tablet 0.2 MG PO BID PRN PRN Withdrawal Symptoms Hydrocodone-Acetaminophen 5-300 mg (Hydrocodone-Acetaminophen 5-300 mg) 1 Each Tablet 1 TABLET PO Q4H PRN PRN For Pain Hydrocodone-Acetaminophen 5-325 mg (Hydrocodone-Acetaminophen 5-325 mg) 1 Each Tablet 1-2 TABLET PO Q4H PRN PRN For Pain Hydrocodone-Acetaminophen 5-325 mg (Hydrocodone-Acetaminophen 5-325 mg) 1 Each Tablet 1 TABLET PO Q4H PRN PRN For Pain Hydrocodone-Acetaminophen 7.5-325 mg (Hydrocodone-Acetaminophen 7.5-325 mg) 1 Each Tablet 1-2 TABLET PO Q4H PRN PRN For Pain Ibuprofen (Ibuprofen) 600 Mg Tablet 600 MG PO QID PRN PRN For Pain Naproxen (Naproxen) 500 Mg Tab 500 MG PO BID PRN PRN For Pain Ondansetron ODT (Zofran ODT) 4 Mg Tablet 4 MG PO Q4H PRN PRN For Nausea Ondansetron ODT (Ondansetron ODT) 8 Mg Tab.rapdis 8 MG PO QID PRN PRN For Nausea Phenazopyridine (Phenazopyridine) 200 Mg Tablet 200 MG PO TID PRN PRN dysuria Phenazopyridine (Pyridium) 200 Mg Tablet 200 MG PO TID PRN PRN For Pain oxyCODONE-Acetaminophen 5-325 mg (oxyCODONE-Acetaminophen 5-325 mg) 1 Each Tablet 1-2 TAB PO Q6H PRN PRN For Pain oxyCODONE-Acetaminophen 5-325 mg (oxyCODONE-Acetaminophen 5-325 mg) 1 Each Tablet 1-2 TAB PO Q6H PRN PRN For Pain General Time Seen by MD: 19:42 Chief Complaint Abdominal pain Hx Obtained From: Patient Arrived By: Walk-in Sudden in Onset?: Yes Onset Occurred: 5 - 8 hours ago Symptom Duration: Constant Location: : RLQ Quality: Painful, Sharp, Stabbing Radiation: : Back Severity: Current: Moderate Severity: Maximum: Moderate Exacerbated by: Movement Recent Healthcare: Recent doctor visit Similar Sx Previous: Yes Past Medical History Past Medical History Notes: Urologist: Dr. Okeefe Past Medical History Depression with self-cutting Arm nerve damage Pyelonephritis Kidney stones Suspected right-sided ureteropelvic junction obstruction s/p stenting on 05/12/2016 Chronic flank pain related to kidney stones and prior stenting Chlamydia - asymptomatic History of IVDA Past Surgical History Right sided double-J stent placement removed 06/2016 Reports: Cholecystectomy Family History Grandmother: heart disease and prior PA Mother: Colon cancer no family history of blood clots Smoking History Current Every Day Smoker Social History Heroin use Alcohol Use: Denies alcohol use Drug Use: IV drugs, Meth Other Social History: Local resident, Homeless Ambulatory Status Independent Review of Systems Review of Systems Note: Skin redness Constitutional: Denies: Chills, Fever GI: Reports: Abdominal pain (RLQ), Diarrhea, Nausea (mild) Female: Denies: Dysuria, Hematuria Musculoskeletal: Reports: Back pain Complete sys rev & neg: except as marked. Skin: Denies Diaphoresis Physical Exam Initial Vital Signs Vital Signs (First) Date Time Temp Pulse Resp B/P Pulse Ox O2 Delivery O2 Flow Rate FiO2 05/10/17 16:56 37.0 87 16 128/89 99 Room Air Initial VS: Reviewed, Vital signs normal Head / Eyes: Atraumatic, Normocephalic Extremities: Vascular intact, Neuro intact, No swelling, No tenderness Skin: Warm, Dry, No cyanosis Neurologic: Alert, Oriented, Nonfocal Psychiatric: Mood/affect normal, Behavior normal, Normal thought content General/Constitutional: Awake, Alert Behavior: Positive: Anxious Appearance / Presentation: Positive: Uncomfortable Respiratory / Chest: Atraumatic, Breath sounds NL, Breath sounds = bilat, No respiratory distress Cardiovascular: Heart rate NL, Regular rhythm, Heart sounds NL, No murmurs Abdomen: Soft, Non-tender Back: Full range of motion Mild CVAT Neurologic: Oriented X3, Speech NL Doesn't appear intoxicated or in withdrawal Upper Extremity / MS: Neurologic intact, Vascular intact Track miranda on bilateral upper extremities, no abscess or infection present Interpretation & Diagnostics US RETROPERITONEAL IMPRESSION: 1. Moderate right hydronephrosis, similar in extent to the study dated 04/03/17. Dictated by: Amairani Sargent M.D. on 05/10/2017 at 20:41 Approved by: Amairani Sargent M.D. on 05/10/2017 at 20:43 Lab Results Interpretation Test 05/10/17 20:01 Urine Color Yellow (YELLOW) Urine Appearance Clear (CLEAR,HAZY) Urine pH 6.0 (5.0-8.0) Urine Specific [place] 1.015 (1.003-1.035) Urine Protein Negativemg/dL (NEG,TRACE) Urine Glucose (UA) Negativemg/dL (NEGATIVE) Urine Ketones 15mg/dL (NEGATIVE) Urine Occult Blood Trace (NEGATIVE) Urine Nitrite Negative (NEGATIVE) Urine Bilirubin Negative (NEGATIVE) Urine Urobilinogen Normalmg/dL (NORMAL) Urine Leukocyte Esterase Negative (NEGATIVE) Urine RBC 0-2/hpf (0-2) Urine WBC 0-5/hpf (0-5) Urine Epithelial Cells Many/hpf (NONE-MOD) Urine Crystals None seen (NONE SEEN) Urine Bacteria Few/hpf (NONE-FEW) Urine Hyaline Casts None/lpf (NONE) Urine Granular Casts None seen (NONE SEEN) Urine Waxy Casts None seen (NONE SEEN) Urine Red Blood Cell Casts None seen (NONE SEEN) Urine White Blood Cell Casts None seen (NONE SEEN) Urine Mucus None seen (None Seen) Urine Trichomonas None seen (NONE SEEN) Urine Yeast None (NONE SEEN) Urinalysis Comment None Urine Culture Reflexed Not indicated Lab Results Interpretation: UA negative Re-Eval/Medical Decision Med Decision/Clinical Course This is a 27-year-old female with a history of heroin abuse who presents with acute onset of right flank pain, she says is somewhat reminiscent of kidney stones. She has Had kidney stones, and even required a ureteral stent in the past. She last used heroin this morning. She is also currently homeless. She does not appeared severe discomfort initially. But she is very anxious. He does not appear clinically intoxicated or current withdrawal, but does have extensive track miranda. No signs of secondary infection. She has no heart murmurs. Soft nontender. A few the records indicates the patient had multiple CT images, so rather than re-irradiate, an ultrasound was obtained-and is indeed positive for right hydronephrosis. This has been seen intermittently in suggestive stones on prior CT imaging. Since urinalysis is negative. She is a benign dose of pain medicine and is improved. He was seen by [facility] as her trying to see if she might be a candidate for sobering services, but apparently has had behavioral issues, there is no bed available today, and would have to be reviewed further by staff for being considered there. It is not an option for tonight. His pain is been well controlled. I had her seen by Dr. Osborn who is offered her Suboxone therapy and referral to [facility]. We've discussed the fact that patient would need to be off narcotics and beginning develop withdrawal before starting Suboxone in order to avoid precipitating severe withdrawal itself, and she is considering trying this pathway immediately, but it is complicated by the continent existence of a probable kidney stone.. After discussion I have provided a couple days of hydrocodone that she could use given her tests do suggest recurrent urolithiasis. Also start the patient on tamsulosin. The patient will follow up with urologist Dr. Okeefe if not improving in a few days. Routine and return precautions were reviewed, Source of Hx: Old records Re-Evaluation/Progress #1: Time of Eval: 21:22 Patient Status: Condition improved Re-Evaluation/Progress Note: Patient rechecked. Patient reports improvement in symptoms, but still has some pain. Will wait for social media campaign manager consult. Re-Evaluation/Progress #2: Time of Eval: 22:49 Patient Status: Condition improved Re-Evaluation/Progress Note: Patient rechecked. Discussed plan for discharge. Patient understands and agrees with plan. Follow-up and return to ED warnings given. All questions addressed. Counseled Regarding: Diagnosis, Lab results, Need for follow-up, When/why to return to ED Discharge & Departure Primary Impression: Kidney stone Additional Impressions: Substance abuse Hydronephrosis of right kidney Disposition: Home Discharge Condition All VS Reviewed: Yes Condition: Stable Additional Instructions: 1. Your symptoms and ultrasound do suggest a right-sided kidney stone. He do have some swelling of the rdxzha-abboivsrwypjxa-ycosr is typically indicative of a stone. 2. Take the medication tamsulosin 0.4 mg once a day as this medicine was thought to help pass the stone fast 3. Drink plenty of fluids. 4. Take ibuprofen 800 mg 3 times a day. This medication helps relax the ureter to help the stone passed, and this significantly improves pain management as well. 5. You can take hydrocodone/APAP 7. 5/325 1-2 tabs up to every 4-6 hours if needed for severe pain for the next couple of days. 6. Over soon as possible, in fact about 24 hours after the last opiate-and when you were developing withdrawal symptoms he may transition to the Suboxone prescription written by Dr. Blood. Follow-up with [facility] (Call the ED priority access# for [facility] at [phone]) Referrals: Neha Ernandez Scribe Attestation Portions of this note were transcribed by Emilee Ocampo. I, Dr. Interiano, personally performed the history, physical exam and medical decision-making; I reviewed and confirmed the accuracy of the information in the transcribed note. copies to: Neha Ernandez Matthew F MD May 10, 2017 19:48 Emilee Ocampo May 10, 2017 19:55
[2017-05-10] MEDS ORDERED: Ondansetron 8 mg ODT Tablet PO ONE (20:00)
[2017-05-10] MEDS ORDERED: HYDROmorphone 1 mg/mL Inj IM ONE (20:00)
[2017-05-10 20:16] LABS: APPEARANCE,URINE CLEAR (CLEAR,HAZY); COLOR,URINE YELLOW (YELLOW)
[2017-05-10 20:17] LABS: OCCULT BLOOD,URINE TRACE (NEGATIVE); UROBILINOGEN,URINE NORMAL (NORMAL)
--- NOTE | 2017-05-10 20:45 | DRSVH ---
PROCEDURE: US RETROPERITONEAL SONOGRAM ([id number]) INDICATIONS: Flank pain, ho stones TECHNIQUE: Real-time scanning was performed of the kidneys and bladder, with image documentation. COMPARISON: None. FINDINGS: Kidneys: Kidneys are normal in size. Right kidney measures 12.9 cm long; left kidney measures 11.6 cm long. Right renal cortical thickness is 1.2 cm; left renal cortical thickness is 1.1 cm. Renal c ortical echotexture is normal. There is moderate right hydronephrosis. No left hydronephrosis. No nep hrolithiasis. Bladder: The patient was unable to void during the study. Pre-void images demonstrate no intraluminal masses or stones. On pre-void images, bilateral ureteral jets are noted with color Doppler interrog ation. (Of note, ureteral jets may not be detectable in up to 25% of cases due to insufficient diffe rences in specific gravity between ureteral and bladder urine). Miscellaneous: No free pelvic fluid. IMPRESSION: 1. Moderate right hydronephrosis, similar in extent to the study dated 04/03/17. Dictated by: Amairani Sargent M.D. on 05/10/2017 at 20:41 Approved by: Amairani Sargent M.D. on 05/10/2017 at 20:43
[2017-05-10] MEDS ORDERED: oxyCODONE-Acetamin 5-325 mg Tablet PO ONE (21:25)
[2017-05-10 23:22] VITALS: BP 125/81; PULSE 82; RESP 18; O2SAT 99
[2017-05-10] MEDS ORDERED: TAMS0.4C98 PO (23:41)
[2017-05-10] MEDS ORDERED: HYDR-3825 PO (23:41)
[2017-05-10] MEDS ORDERED: _HYDROcodone/APAP 5-325 mg Tablet PO PRN (23:45)
[2017-05-10] MEDS ORDERED: BUPR1FIL3 SL (23:50)
[2017-05-11 00:24] VITALS: BP 125/81; PULSE 82; RESP 18; O2SAT 99
== END 2017-05-11 00:24 | disposition home or self-care (01) ==
LOC: SED 16:32
DX: N20.0 Calculus of kidney (principal); F11.10 Opioid abuse, uncomplicated; N13.30 Unspecified hydronephrosis; F15.10 Other stimulant abuse, uncomplicated; F17.200 Nicotine dependence, unspecified, uncomplicated; Z90.49 Acquired absence of other specified parts of digestive tract; Z87.442 Personal history of urinary calculi; Z59.0 Homelessness; Z88.0 Allergy status to penicillin
CPT/HCPCS: 76770; 81000; 81025; 96372; 99285; J1170; J1885